=== PATIENT | male | born 1935 | race Caucasian/White ===

== ENCOUNTER 2020-08-20 10:47 | Emergency (ER) | payer MEDICARE ==
[2020-08-20 10:53] VITALS: RESP 18
--- NOTE | 2020-08-20 11:05 | ED ---
Fall HPI - General Chief Complaint: Fall Stated Complaint: fall/rib/back pain Time Seen by Provider: 08/20/20 10:54 Source: patient Mode of arrival: ambulatory - History of Present Illness Initial Comments: patient is an 85-year-old male presenting to the emergency Department with complaints of left-sided rib pain after he fell 3 days ago. Patient states he slipped on some ice and fell backwards landing mostly on his back and he also did hit his head a little bit too. Patient denies loss of consciousness, no dizziness. Patient states he thought the discomfort in his left ribs would go away but it has not. Patient states it's worse when he goes to lay down and when he goes to turn to get back up. Patient denies having a headache, no lightheadedness. He denies being on blood thinners. He denies any blurry vision, no abdominal pain, no nausea or vomiting. He denies any fevers. He denies any chest pain, shortness of breath. Patient does state when he takes in a deep breath it does hurt the left side of his ribs. He denies any other injuries from this fall. He has no further complaints. Upon arrival to the ER, his vital signs are stable. - Related Data Home Medications Medication Instructions Recorded Confirmed Zolpidem [Ambien] 10 mg PO HS PRN 08/20/20 08/20/20 amLODIPine [Norvasc] 5 mg PO DAILY 08/20/20 08/20/20 lisinopriL 20 mg PO BID 08/20/20 08/20/20 Previous Rx's Medication Instructions Recorded Atorvastatin [Lipitor] 80 mg PO HS #30 tab 06/08/14 Sertraline [Zoloft] 25 mg PO DAILY #30 tab 06/08/14 Allergies Allergy/AdvReac Type Severity Reaction Status Date / Time No Known Allergies Allergy Verified 08/20/20 11:32 Review of Systems ROS Statement: Those systems with pertinent positive or pertinent negative responses have been documented in the HPI. ROS Other: All systems not noted in ROS Statement are negative. Past Medical History Past Medical History: Cancer, Hyperlipidemia, Hypertension Additional Past Medical History / Comment(s): prostate History of Any Multi-Drug Resistant Organisms: None Reported Past Surgical History: Coronary Bypass/CABG, Hernia Repair, Prostate Surgery Additional Past Surgical History / Comment(s): ankle surgery Past Anesthesia/Blood Transfusion Reactions: No Reported Reaction Past Psychological History: Anxiety Smoking Status: Never smoker Past Alcohol Use History: Occasional Past Drug Use History: None Reported - Past Family History Daughter(s) Family Medical History: No Reported History General Exam - General Exam Comments Initial Comments: GENERAL: Patient is well-developed and well-nourished. Patient is nontoxic and in no acute distress. HEAD: Atraumatic, normocephalic. there is no hematomas, he does have a small abrasion to the back of his head, this is healing appropriately. No signs of basal skull fracture. EYES: Pupils equal round and reactive to light, extraocular movements intact, sclera anicteric, conjunctiva are normal. Eyelids were unremarkable. ENT: TMs normal, nares patent, oropharynx clear without exudates. Moist mucous membranes. NECK: Normal range of motion, supple without lymphadenopathy or JVD.is no midline tenderness. LUNGS: Unlabored respirations. Breath sounds clear to auscultation bilaterally and equal. No wheezes rales or rhonchi. HEART: Regular rate and rhythm without murmurs, rubs or gallops. ABDOMEN: Soft, nontender, normoactive bowel sounds. No guarding, no rebound. No masses appreciated. : Deferred MUSCULOSKELETAL: Normal extremities with adequate strength and normal range of motion, no pitting or edema. No clubbing or cyanosis. patient does have some pain with palpation of the left lateral and anterior ribs. Positive pain with compression. He does have some mild pain in the thoracic area as well. NEUROLOGICAL: Patient is alert and oriented x 3. Motor and sensory are also intact. Cranial nerves II through XII grossly intact. Symmetrical smile. Normal speech, normal gait. PSYCH: Normal mood, normal affect. SKIN: Warm, Dry, normal turgor, no rashes or lesions noted. Limitations: no limitations Course Vital Signs 08/20/20 10:50 Temperature 98.8 F Pulse Rate 82 Respiratory 18 Rate Blood Pressure 173/85 O2 Sat by Pulse 94 L Oximetry Medical Decision Making - Medical Decision Making patient is an 85-year-old male presenting after he fell 3 days ago, he is complaining of left-sided rib pain. This increases when he lays down onto his back or when he turns to get back up. x-rays of the left ribs, chest x-ray and thoracic back x-ray are all revealed no acute findings of fracture dislocation. I discussed the patient is a most likely contusions. He does take Tylenol Motrin and, Lane at home for more severe pain. I recommended continuing with deep breathing exercises, we did discuss this. Patient is stable for discharge. Patient is in agreement with this plan of care. Return parameters were discussed with the patient and they verbalized understanding. Case discussed with Dr. Jameson. Disposition Clinical Impression: Fall, Contusion of rib on left side Disposition: HOME SELF-CARE Condition: Stable Instructions (If sedation given, give patient instructions): Rib Contusion (ED) Additional Instructions: Please return to the Emergency Department if symptoms worsen or any other concerns. Continue with Tylenol, Motrin, Lane for more severe pain. Follow-up with your physician. Is patient prescribed a controlled substance at d/c from ED?: No Referrals: Jason March MD [Primary Care Provider] - 1-2 days
--- NOTE | 2020-08-20 11:47 | XR ---
EXAMINATION TYPE: XR thoracic spine 2V DATE OF EXAM: 08/20/2020 CLINICAL HISTORY: pain TECHNIQUE: Frontal, lateral, and swimmer's view of thoracic spine are obtained. COMPARISON: None. FINDINGS: Thoracic spine show satisfactory alignment without evidence of acute fracture or dislocatio n. Vertebral body heights are preserved. Moderate multilevel degenerative disc space narrowing. Vi sualized ribs are unremarkable. IMPRESSION: No acute fracture or dislocation is seen in the thoracic spine. ICD 10 NO FRACTURE, INIT IAL EVALUATION
--- NOTE | 2020-08-20 11:48 | XR ---
EXAMINATION TYPE: XR ribs LT w pa chest xray DATE OF EXAM: 08/20/2020 COMPARISON: NONE HISTORY: Pain TECHNIQUE: Single view of the chest 5 views of the ribs are submitted. FINDINGS: Calcified pleural plaques noted. No Evidence for pneumothorax. No evidence for focal contu stacy. Mediastinal structures are midline. Evaluation of the ribs fails to demonstrate evidence for displaced rib fracture or secondary sign of rib fracture. IMPRESSION: Negative study
[2020-08-20 12:03] VITALS: BP 165/72; PULSE 71; TEMP 98.3
== END 2020-08-20 12:02 | disposition home or self-care (01) ==
LOC: EC 10:47
DX: S20.222A Contusion of left back wall of thorax, initial encounter (principal); S00.81XA Abrasion of other part of head, initial encounter; I10 Essential (primary) hypertension; Z79.899 Other long term (current) drug therapy; Z95.1 Presence of aortocoronary bypass graft; Z85.46 Personal history of malignant neoplasm of prostate; W00.0XXA Fall on same level due to ice and snow, initial encounter
CPT/HCPCS: 72070; 99283

== ENCOUNTER 2020-11-29 09:29 | Emergency (ER) | payer MEDICARE ==
[2020-11-29 09:35] VITALS: TEMP 98.2
--- NOTE | 2020-11-29 10:04 | ED ---
General Adult HPI - General Chief complaint: Chest Pain Stated complaint: chest pain Time Seen by Provider: 11/29/20 09:30 Source: patient, RN notes reviewed, old records reviewed Mode of arrival: wheelchair Limitations: no limitations - History of Present Illness Initial comments: This is an 85-year-old male who presents emergency Department complaining of a rash on the right side of his chest. Patient states it started 2 days ago. Patient states he has been having intermittent pain since July on both sides of his ribs and today it it's only on the left side with rashes. Patient states in July he did fall and ever since he has had intermittent pain. Patient denies any anterior chest pain or pressure patient denies any difficulty breat dc shortness of breath. Patient denies any abdominal pain patient denies nausea vomiting diarrhea. Patient denies any recent fever chills or cough. - Related Data Home Medications Medication Instructions Recorded Confirmed Zolpidem [Ambien] 10 mg PO HS PRN 08/20/20 11/29/20 amLODIPine [Norvasc] 5 mg PO DAILY 08/20/20 11/29/20 lisinopriL 20 mg PO BID 08/20/20 11/29/20 Aspirin EC [Ecotrin Low Dose] 162 mg PO DAILY 11/29/20 11/29/20 Previous Rx's Medication Instructions Recorded Atorvastatin [Lipitor] 80 mg PO HS #30 tab 06/08/14 Sertraline [Zoloft] 25 mg PO DAILY #30 tab 06/08/14 valACYclovir HCL 1,000 mg PO TID 7 Days tab 11/29/20 Allergies Allergy/AdvReac Type Severity Reaction Status Date / Time No Known Allergies Allergy Verified 11/29/20 10:38 Review of Systems ROS Statement: Those systems with pertinent positive or pertinent negative responses have been documented in the HPI. ROS Other: All systems not noted in ROS Statement are negative. Past Medical History Past Medical History: Cancer, Hyperlipidemia, Hypertension Additional Past Medical History / Comment(s): prostate History of Any Multi-Drug Resistant Organisms: None Reported Past Surgical History: Coronary Bypass/CABG, Hernia Repair, Prostate Surgery Additional Past Surgical History / Comment(s): ankle surgery Past Anesthesia/Blood Transfusion Reactions: No Reported Reaction Past Psychological History: Anxiety Smoking Status: Never smoker Past Alcohol Use History: Occasional Past Drug Use History: None Reported - Past Family History Daughter(s) Family Medical History: No Reported History General Exam - General Exam Comments Initial Comments: GENERAL: Patient is well-developed and well-nourished. Patient is nontoxic and well- hydrated and is in mild distress. ENT: Neck is soft and supple. No significant lymphadenopathy is noted. Oropharynx is clear. Moist mucous membranes. Neck has full range of motion without eliciting any pain. EYES: The sclera were anicteric and conjunctiva were pink and moist. Extraocular movements were intact and pupils were equal round and reactive to light. Eyelids were unremarkable. PULMONARY: Unlabored respirations. Good breath sounds bilaterally. No audible rales rhonchi or wheezing was noted. CARDIOVASCULAR: There is a regular rate and rhythm without any murmurs gallops or rubs. ABDOMEN: Soft and nontender with normal bowel sounds. SKIN: Patient has groups a fascicular lesions in the distribution of a dermatome probably T3 NEUROLOGIC: Patient is alert and oriented x3. Cranial nerves II through XII are grossly intact. Motor and sensory are also intact. Normal speech, volume and content. Symmetrical smile. MUSCULOSKELETAL: Normal extremities with adequate strength and full range of motion. LYMPHATICS: No significant lymphadenopathy is noted PSYCHIATRIC: Normal psychiatric evaluation. Limitations: no limitations Course Vital Signs 11/29/20 11/29/20 09:29 11:41 Temperature 98.2 F Pulse Rate 80 60 Respiratory 16 18 Rate Blood Pressure 182/86 157/87 O2 Sat by Pulse 97 96 Oximetry Medical Decision Making - Medical Decision Making EKG shows sinus rhythm at 60 bpm WA interval is 256 QRS is 138 QTC intervals 434 QTC is 461. Patient's EKG shows no ST segment elevation or depression. Have a right bundle branch block X-ray of the chest and thoracic spine showed no acute abnormality. On patient pointed to the area of discomfort on the left he pointed right along the area of the rash. The rash is consistent with shingles Disposition Clinical Impression: Shingles Disposition: HOME SELF-CARE Condition: Good Instructions (If sedation given, give patient instructions): Shingles (ED) Prescriptions: valACYclovir HCL 1,000 mg PO TID 7 Days tab Is patient prescribed a controlled substance at d/c from ED?: No Referrals: Jason March MD [Primary Care Provider] - 1-2 days Time of Disposition: 11:34
--- NOTE | 2020-11-29 10:51 | XR ---
EXAMINATION TYPE: XR chest 2V DATE OF EXAM: 11/29/2020 COMPARISON: Chest x-ray August 20, 2020 HISTORY: Difficulty in breathing. TECHNIQUE: Frontal and lateral views of the chest are obtained. FINDINGS: Calcified pleural plaques and chronic parenchymal changes bilaterally. Elevated left hemid iaphragm. There is no suspicious new focal air space opacity, pleural effusion, or pneumothorax seen. The cardiac silhouette size is stable and upper limits of normal. Overlying sternal wires and media stinal clips. The osseous structures are demineralized. IMPRESSION: Chronic changes without new acute pulmonary process.
--- NOTE | 2020-11-29 11:00 | XR ---
Thoracic spine HISTORY: Trauma 3 months prior, pain 3 views of the thoracic spine correlated to prior exam 08/20/2020 Patient is post median sternotomy, there are overlying artifacts. There is a gentle spinal curvature. Bone mineralization is reduced which could limit sensitivity. Thoracic vertebral bodies show preserv ed height and alignment. Degenerative disc changes are noted in the cervical spine. Disc heights are relatively maintained. Probable calcified pleural plaques noted incidentally within the chest. Aorta is dense. IMPRESSION: Osteopenia, spinal curvature, degenerative disc disease. Bone scan or MRI may be of benef it as indicated.
[2020-11-29 11:42] VITALS: BP 157/87; PULSE 60; RESP 18
== END 2020-11-29 11:41 | disposition home or self-care (01) ==
LOC: EC 09:29
DX: B02.9 Zoster without complications (principal); E78.5 Hyperlipidemia, unspecified; I10 Essential (primary) hypertension; M51.34 Other intervertebral disc degeneration, thoracic region; M85.80 Other specified disorders of bone density and structure, unspecified site; Z79.82 Long term (current) use of aspirin; Z95.1 Presence of aortocoronary bypass graft
CPT/HCPCS: 71046; 72072; 93005; 99284

== ENCOUNTER 2020-12-18 16:48 | Inpatient (IN) | payer MEDICARE ==
--- NOTE | 2020-12-18 20:09 | XR ---
EXAMINATION TYPE: XR Hip Complete RT DATE OF EXAM: 12/18/2020 COMPARISON: NONE HISTORY: Hip pain TECHNIQUE: 2 views FINDINGS: Acetabulum is intact. There is slight irregular appearance of the cortical surface of the g reater trochanter that is suspicious for fracture. There is no dislocation. IMPRESSION: Possible nondisplaced intertrochanteric fracture of the right femur.
--- NOTE | 2020-12-18 20:11 | XR ---
EXAMINATION TYPE: XR wrist complete RT DATE OF EXAM: 12/18/2020 COMPARISON: NONE HISTORY: Wrist pain TECHNIQUE: 4 views FINDINGS: There is mild deformity of the distal radius suggestive of an old fracture. I see no defini te acute fracture. The carpal bones are intact. There is mild narrowing of the radiocarpal joint spac e. IMPRESSION: Old distal radius fracture. 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
[2020-12-18] MEDS ORDERED: MORPHINE SULFATE 4 MG/ML SYRINGE IVP STA (20:59)
[2020-12-18] MEDS ORDERED: NALOXONE 0.4 MG/ML 1 ML VIAL IV PRN (21:03)
--- NOTE | 2020-12-18 21:03 | ED ---
Fall HPI - General Chief Complaint: Fall Stated Complaint: fall, hip pain Time Seen by Provider: 12/18/20 17:48 Source: patient Mode of arrival: wheelchair - History of Present Illness Initial Comments: Fidel a very pleasant 85-year-old male who presents to the emergency department today via private vehicle for evaluation of right wrist and right hip pain after a fall at home. Patient reports he was up approximately 2 steps on a step ladder when he lost his footing and fell onto his right side. Patient landed on his hip and attempted to brace the fall with his wrist. H did not strike his head he did not lose consciousness. He is on no anticoagulants he takes baby aspirin daily. - Related Data Home Medications Medication Instructions Recorded Confirmed amLODIPine [Norvasc] 5 mg PO DAILY 08/20/20 12/18/20 lisinopriL 20 mg PO BID 08/20/20 12/18/20 Gabapentin [Neurontin] 100 mg PO TID PRN 12/18/20 12/18/20 HYDROcodone/APAP 5-325MG [Ray 1 tab PO Q4HR PRN 12/18/20 12/18/20 5-325] Triamcinolone 0.1% Cream [Kenalog 1 applicatio TOPICAL BID 12/18/20 12/18/20 0.1% Cream] Previous Rx's Medication Instructions Recorded Atorvastatin [Lipitor] 80 mg PO HS #30 tab 06/08/14 Sertraline [Zoloft] 25 mg PO DAILY #30 tab 06/08/14 valACYclovir HCL 1,000 mg PO TID 7 Days tab 11/29/20 Allergies Allergy/AdvReac Type Severity Reaction Status Date / Time No Known Allergies Allergy Verified 12/18/20 20:23 Review of Systems ROS Statement: Those systems with pertinent positive or pertinent negative responses have been documented in the HPI. ROS Other: All systems not noted in ROS Statement are negative. Past Medical History Past Medical History: Cancer, Hyperlipidemia, Hypertension Additional Past Medical History / Comment(s): prostate, shingles History of Any Multi-Drug Resistant Organisms: None Reported Past Surgical History: Coronary Bypass/CABG, Hernia Repair, Prostate Surgery Additional Past Surgical History / Comment(s): ankle surgery Past Anesthesia/Blood Transfusion Reactions: No Reported Reaction Past Psychological History: Anxiety Smoking Status: Never smoker Past Alcohol Use History: Occasional Past Drug Use History: None Reported - Past Family History Daughter(s) Family Medical History: No Reported History General Exam - General Exam Comments Initial Comments: Physical Exam GENERAL: Patient is well-developed and well-nourished. Patient is nontoxic and well-hydrated and is in no distress. HENT: Normocephalic, Atraumatic. EYES: Subconjunctival hemorrhage noted in the left eye due to injections for macular degeneration earlier this week PULMONARY: Unlabored respirations. CARDIOVASCULAR: RRR Warm and well perfused extremities ABDOMEN: Non-distended SKIN: No rashes or bruising : Deferred NEUROLOGIC: Alert and oriented Normal speech MUSCULOSKELETAL: Pain with range of motion of the right hip, no shortening or rotation PSYCHIATRIC: No SI/HI Limitations: no limitations Course Vital Signs 12/18/20 17:39 Temperature 98.2 F Pulse Rate 67 Respiratory 20 Rate Blood Pressure 126/69 O2 Sat by Pulse 96 Oximetry Medical Decision Making - Medical Decision Making Patient was seen and evaluated x-rays are obtained they confirm a intertrochanteric hip fracture, patient's family request consult to Dr. Asim Donnelly, fracture was discussed he recommends admission to medicine with cardiology consult for operative clearance Disposition Clinical Impression: Intertrochanteric fracture of right hip, Fall Disposition: ADMITTED IP TO THIS [facility] Condition: Stable Referrals: Jason March MD [Primary Care Provider] - 1-2 days
[2020-12-18 21:32] LABS: Basophils % (A) 0 %; Eosinophils % (A) 1 %; HCT 34.8 % (39.0-53.0); HGB 11.2 gm/dL (13.0-17.5); Lymphocytes # (A) 1.1 k/uL (1.0-4.8); Lymphocytes % (A) 15 %; MCH 28.3 pg (25.0-35.0); MCHC 32.3 g/dL (31.0-37.0); MCV 87.7 fL (80.0-100.0); Mean Platelet Volume 9.4; Monocytes # (A) 0.4 k/uL (0-1.0); Monocytes % (A) 6 %; Neutrophils # (A) 5.3 k/uL (1.3-7.7); Neutrophils % (A) 77 %; Platelet Count 178 k/uL (150-450); RBC 3.97 m/uL (4.30-5.90); RDW 15.1 % (11.5-15.5); WBC 6.9 k/uL (3.8-10.6)
[2020-12-18 21:42] LABS: ALT 18 U/L (4-49); AST 43 U/L (17-59); African American GFR (CKD) >90 (>60 ml/min/1.73 sqM); Albumin 4.1 g/dL (3.5-5.0); Alkaline Phosphatase 83 U/L (38-126); Anion Gap 5 mmol/L; Blood Urea Nitrogen 22 mg/dL (9-20); Calcium 9.3 mg/dL (8.4-10.2); Carbon Dioxide 25 mmol/L (22-30); Chloride 105 mmol/L (98-107); Glucose 110 mg/dL (74-99); Non-African American GFR(CKD) 79 (>60 ml/min/1.73 sqM); Sodium 135 mmol/L (137-145); Total Bilirubin 1.3 mg/dL (0.2-1.3); Total Protein 6.6 g/dL (6.3-8.2)
[2020-12-18 21:45] LABS: Partial Thromboplastin Time 24.4 sec (22.0-30.0); Prothrombin Time 10.4 sec (9.0-12.0)
[2020-12-19] MEDS ORDERED: GABAPENTIN 100 MG CAP PO PRN (03:07)
[2020-12-19] MEDS: MORPHINE SULFATE 4 MG/ML SYRINGE IVP PRN ×5 (03:23→21:30)
[2020-12-19] MEDS: SODIUM CHLORIDE 0.9% 1,000 ML IV SCH ×3 (03:24→23:09)
[2020-12-19] MEDS: lisinopriL 20 MG TAB PO SCH ×2 (08:00→20:00)
[2020-12-19] MEDS: amLODIPine 5 MG TAB PO SCH (08:00)
[2020-12-19] MEDS: SERTRALINE 25 MG TAB PO SCH (08:00)
[2020-12-19 08:25] LABS: African American GFR (CKD) 88 (>60 ml/min/1.73 sqM); Anion Gap 5 mmol/L; Blood Urea Nitrogen 19 mg/dL (9-20); Carbon Dioxide 25 mmol/L (22-30); Chloride 107 mmol/L (98-107); Glucose 112 mg/dL (74-99); Non-African American GFR(CKD) 76 (>60 ml/min/1.73 sqM); Sodium 137 mmol/L (137-145)
--- NOTE | 2020-12-19 08:47 | P.CRDCN ---
History of Present Illness Consult date: 12/19/20 Requesting physician: Dre Santana Reason for Consult (text): cardiac clearance Chief complaint: hip pain s/p fall History of present illness: This is a pleasant 85-year-old gentleman who follows with Dr. Samuel in the office. He has a history of CAD status post CABG in 2013 with BRYSON to the LAD, SVG to diagonal, SVG to obtuse marginal, SVG to PDA, RCA bridge to PDA, history of hypertension and hyperlipidemia. He is a nonsmoker. Presented to the emergency department following a fall. He was 2 steps onto a ladder trying to do some layering when he fell and landed on his right side. X-ray of the right hip showed possible nondisplaced intertrochanteric fracture of the right femur. We have been asked to see the patient in consultation for cardiac clearance. EKG on admission showed sinus rhythm with first-degree AV block, right bundle branch block and evidence of prior inferior MO and no change compared to EKG from last month. Labs on admission showed hemoglobin of 11.2, potassium of 6.0 with slight hemolysis and a repeat potassium of 4.0, BUN 22, creatinine 0.87. His vital signs have been stable. All medications currently include lisinopril 20 mg by mouth twice a day, atorvastatin 80 mg by mouth daily at bedtime, L acyclovir for recent shingles infection, amlodipine 5 mg by mouth daily and low- dose aspirin 81 mg daily. Overall he feels he is fairly active for his age. He continues to ride a motorcycle. He's had no recent complaints of chest discomfort other than his shingles, no shortness of breath, no palpitations, no dizziness, no lightheadedness, no orthopnea, no PND. He does have mild bilateral lower extremity edema that is chronic and stable. He is fairly certain that he has had his echocardiogram and stress test done within the last 6 months and is followed up with Dr. Samuel at which time there were no concerns regarding the testing. Most recent echocardiogram available to me is from prior to his CABG in 2013 which showed mildly impaired LV systolic function with an ejection fraction between 45-50%, mild MR, trace TR. Past Medical History Past Medical History: Cancer, Hyperlipidemia, Hypertension Additional Past Medical History / Comment(s): prostate CA, shingles History of Any Multi-Drug Resistant Organisms: None Reported Past Surgical History: Coronary Bypass/CABG, Hernia Repair, Prostate Surgery Additional Past Surgical History / Comment(s): ankle surgery Past Anesthesia/Blood Transfusion Reactions: No Reported Reaction Past Psychological History: Anxiety Smoking Status: Never smoker Past Alcohol Use History: Occasional Past Drug Use History: None Reported - Past Family History Daughter(s) Family Medical History: No Reported History Medications and Allergies Home Medications Medication Instructions Recorded Confirmed Type Atorvastatin [Lipitor] 80 mg PO HS #30 tab 06/08/14 12/18/20 Rx Sertraline [Zoloft] 25 mg PO DAILY #30 tab 06/08/14 12/18/20 Rx amLODIPine [Norvasc] 5 mg PO DAILY 08/20/20 12/18/20 History lisinopriL 20 mg PO BID 08/20/20 12/18/20 History valACYclovir HCL 1,000 mg PO TID 7 Days tab 11/29/20 12/18/20 Rx Gabapentin [Neurontin] 100 mg PO TID PRN 12/18/20 12/18/20 History HYDROcodone/APAP 5-325MG [[place] 1 tab PO Q4HR PRN 12/18/20 12/18/20 History 5-325] Triamcinolone 0.1% Cream [Kenalog 1 applicatio TOPICAL BID 12/18/20 12/18/20 History 0.1% Cream] Allergies Allergy/AdvReac Type Severity Reaction Status Date / Time No Known Allergies Allergy Verified 12/18/20 20:23 Physical Exam Vitals: Vital Signs Temp Pulse Pulse Resp BP BP Pulse Ox 12/19/20 04:55 98.3 F 78 18 137/74 93 L 12/19/20 03:00 78 18 12/19/20 02:45 98.5 F 66 18 157/73 97 12/19/20 01:05 79 16 121/73 92 L 12/18/20 17:39 98.2 F 67 20 126/69 96 Intake and Output 12/18/20 12/19/20 12/19/20 22:59 06:59 14:59 Intake Total 300 Balance 300 Intake: Intake, IV Titration 300 Amount Sodium Chloride 0.9% 1, 300 000 ml @ 100 mls/hr IV . Q10H [facility] Rx#:[id number] Other: Voiding Method Urinal # Voids 1 Weight 79.379 kg 79.379 kg PHYSICAL EXAMINATION: This is a 85-year-old male in no apparent distress at the time of my examination. VITAL SIGNS: Blood pressure 137/74, heart rate 78, respirations 18, temp 98.3F. Patient is 93 % on room air. HEENT: Head is atraumatic, normocephalic. Pupils are equal, round. Sclerae anicteric. Conjunctivae are clear. Mucous membranes of the mouth are moist. Neck is supple. There is no elevated jugular venous pressure. No carotid bruit is heard. CHEST EXAMINATION: Clear to auscultation bilaterally. No wheezes rales or rhonchi. Respirations even and nonlabored. HEART EXAMINATION: Heart regular, positive S1 and S2. No S3. No S4. Soft systolic murmur. ABDOMEN: Soft, nontender. Bowel sounds are heard. No organomegaly noted. EXTREMITIES: 2+ peripheral pulses with evidence of mild peripheral edema and no calf tenderness noted. NEUROLOGIC EXAMINATION: Patient is awake, alert and oriented x3. Results 12/18/20 21:21 12/19/20 07:55 Cardiac Enzymes 12/18/20 Range/Units 21: AST 43 (17-59) U/L Coagulation 12/18/20 Range/Units 21:21 PT 10.4 (9.0-12.0) sec APTT 24.4 (22.0-30.0) sec CBC 12/18/20 Range/Units 21:21 WBC 6.9 (3.8-10.6) k/uL RBC 3.97 L (4.30-5.90) m/uL Hgb 11.2 L (13.0-17.5) gm/dL Hct 34.8 L (39.0-53.0) % Plt Count 178 (150-450) k/uL Comprehensive Metabolic Panel 12/18/20 12/19/20 Range/Units 21:21 07:55 Sodium 135 L 137 (137-145) mmol/L Potassium 6.0 H 4.0 (3.5-5.1) mmol/L Chloride 105 107 (98-107) mmol/L Carbon Dioxide 25 25 (22-30) mmol/L BUN 22 H 19 (9-20) mg/dL Creatinine 0.87 0.92 (0.66-1.25) mg/dL Glucose 110 H 112 H (74-99) mg/dL Calcium 9.3 9.0 (8.4-10.2) mg/dL AST 43 (17-59) U/L ALT 18 (4-49) U/L Alkaline Phosphatase 83 (38-126) U/L Total Protein 6.6 (6.3-8.2) g/dL Albumin 4.1 (3.5-5.0) g/dL Current Medications Generic Name Dose Route Start Last Admin Trade Name Freq PRN Reason Stop Dose Admin Amlodipine Besylate 5 mg 12/19/20 09:00 12/19/20 08:00 Amlodipine 5 Mg Tab PO 5 mg DAILY [facility] Administration Atorvastatin Calcium 80 mg 12/19/20 21:00 Atorvastatin 80 Mg Tab PO HS [facility] Gabapentin 100 mg 12/19/20 03:07 Gabapentin 100 Mg Cap PO TID PRN Pain Sodium Chloride 1,000 mls @ 100 mls/hr 12/19/20 03:15 12/19/20 03:24 Saline 0.9% IV 100 mls/hr .Q10H [facility] Administration Lisinopril 20 mg 12/19/20 09:00 12/19/20 08:00 Lisinopril 20 Mg Tab PO 20 mg BID [facility] Administration Morphine Sulfate 4 mg 12/19/20 03:03 12/19/20 08:00 Morphine Sulfate 4 Mg/Ml Syringe IVP 4 mg Q4HR PRN Administration Pain Naloxone HCl 0.2 mg 12/18/20 21:03 Naloxone 0.4 Mg/Ml 1 Ml Vial IV Q2M PRN Opioid Reversal Sertraline HCl 25 mg 12/19/20 09:00 12/19/20 08:00 Sertraline 25 Mg Tab PO 25 mg DAILY [facility] Administration Intake and Output 12/18/20 12/19/20 12/19/20 22:59 06:59 14:59 Intake Total 300 Balance 300 Intake: Intake, IV Titration 300 Amount Sodium Chloride 0.9% 1, 300 000 ml @ 100 mls/hr IV . Q10H [facility] Rx#:[id number] Other: Voiding Method Urinal # Voids 1 Weight 79.379 kg 79.379 kg 12/18/20 21:21 12/19/20 07:55 Assessment and Plan Assessment: #1 possible nondisplaced intertrochanteric fracture of the right femur #2 CAD status post CABG 2013 #3 hypertension #4 hyperlipidemia Plan: From cardiology perspective there is no absolute contraindication for patient undergo surgery. We would recommend cardiac monitoring and continue cardiac med ications perioperatively including aspirin. We will follow the patient and provide further recommendations accordingly. INKER MACHINE note has been reviewed, I agree with a documented findings and plan of care. Patient was seen and examined.
[2020-12-19] MEDS ORDERED: IV FLUID CONTINUATION 1,000 ML IV ONE ×2 (08:57)
--- NOTE | 2020-12-19 09:09 | P.HPOR ---
History of Present Illness H&P Date: 12/19/20 Chief Complaint: Right wrist and right hip pain The patient is an 85-year-old gentleman who fell yesterday at home and presents with right hip pain after a fall. He notes he was doing some work at home. He denied loss of consciousness. He is unable to really bear weight on the right leg after the fall. Normally he walks without any assistive devices. He also complains of right wrist pain. He notes he had a previous fracture that healed Review of Systems Musculoskeletal: Reports as per HPI Past Medical History Past Medical History: Cancer, Hyperlipidemia, Hypertension Additional Past Medical History / Comment(s): prostate CA, shingles History of Any Multi-Drug Resistant Organisms: None Reported Past Surgical History: Coronary Bypass/CABG, Hernia Repair, Prostate Surgery Additional Past Surgical History / Comment(s): ankle surgery Past Anesthesia/Blood Transfusion Reactions: No Reported Reaction Past Psychological History: Anxiety Smoking Status: Never smoker Past Alcohol Use History: Occasional Past Drug Use History: None Reported - Past Family History Daughter(s) Family Medical History: No Reported History Medications and Allergies Home Medications Medication Instructions Recorded Confirmed Type Atorvastatin [Lipitor] 80 mg PO HS #30 tab 06/08/14 12/18/20 Rx Sertraline [Zoloft] 25 mg PO DAILY #30 tab 06/08/14 12/18/20 Rx amLODIPine [Norvasc] 5 mg PO DAILY 08/20/20 12/18/20 History lisinopriL 20 mg PO BID 08/20/20 12/18/20 History valACYclovir HCL 1,000 mg PO TID 7 Days tab 11/29/20 12/18/20 Rx Gabapentin [Neurontin] 100 mg PO TID PRN 12/18/20 12/18/20 History HYDROcodone/APAP 5-325MG [[place] 1 tab PO Q4HR PRN 12/18/20 12/18/20 History 5-325] Triamcinolone 0.1% Cream [Kenalog 1 applicatio TOPICAL BID 12/18/20 12/18/20 History 0.1% Cream] Allergies Allergy/AdvReac Type Severity Reaction Status Date / Time No Known Allergies Allergy Verified 12/18/20 20:23 Physical Examination - Hip right Gait: other (Nonweightbearing) Tenderness with palpation: anterior Pain with motion: other (Pain with any attempted range of motion of the right hip) ROM: extension: 0 degrees ROM: flexion: 30 degrees ROM: abduction: 20 degrees ROM: adduction: 10 degrees ROM: internal rotation: 0 degrees ROM: external rotation: 40 degrees Results Nontender over the cervical, thoracic, and lumbar spine. Tender over the right distal radius with mild dorsal wrist swelling. Nontender right elbow and shoulder. Pelvis stable to external rotation stress. Slight external rotation and shortening of the right lower extremity. Pain with log roll right hip. No pain with log roll left hip. Nontender bilateral knees, ankles, and feet. Distal neurovascular exam intact in the lower extremity. Homans negative bilaterally. - Labs Labs: Abnormal Lab Results - Last 24 Hours (Table) 12/18/20 12/18/20 12/19/20 Range/Units 21:21 21: 07:55 RBC 3.97 L (4.30-5.90) m/uL Hgb 11.2 L (13.0-17.5) gm/dL Hct 34.8 L (39.0-53.0) % Sodium 135 L (137-145) mmol/L Potassium 6.0 H (3.5-5.1) mmol/L BUN 22 H (9-20) mg/dL Glucose 110 H 112 H (74-99) mg/dL H & H 12/18/20 Range/Units 21:21 Hgb 11.2 L (13.0-17.5) gm/dL Hct 34.8 L (39.0-53.0) % Coagulation 12/18/20 Range/Units 21:21 INR 1.0 (<1.2) Result Diagrams: 12/18/20 21:21 12/19/20 07:55 - Diagnostic results Wrist/Hand x-ray: image reviewed (Previous right distal radius fracture with some deformity, no definite acute displaced fracture.) Hip x-ray: image reviewed (Minimally displaced right intertrochanteric femur fracture) Assessment and Plan Assessment: Right intertrochanteric femur fracture Right wrist contusion versus occult refracture of the distal radius History of CABG Plan: I talked with the patient regarding his condition along with treatment options. Regarding his hip I recommend proceeding with surgical intervention. We will plan to proceed with trochanteric intramedullary nailing of his right intertrochanteric femur fracture. Regarding his right wrist, we will likely place him in a Velcro brace. Time with Patient: Greater than 30
[2020-12-19] MEDS ORDERED: ePHEDrine SULFATE/0.9% NACL/PF 50 MG/5 ML SYRINGE IV ONE (09:26)
[2020-12-19] MEDS ORDERED: MIDAZOLAM 2 MG/2 ML VIAL ONE (09:26)
[2020-12-19] MEDS ORDERED: KETAMINE 10 MG/ML 20 ML VIAL ONE (09:26)
[2020-12-19] MEDS ORDERED: SODIUM CHLORIDE 0.9% 50 ML with ceFAZolin 2,000 MG IV ONE ×2 (09:48)
--- NOTE | 2020-12-19 10:42 | P.OP ---
Date of Procedure: 12/19/20 Preoperative Diagnosis: Mildly displaced right intertrochanteric femur fracture Postoperative Diagnosis: Same Procedure(s) Performed: Trochanteric intramedullary nailing right intertrochanteric femur fracture Implants: [place] 130 degree, short gamma nail, 100 mm compression screw Anesthesia: spinal Surgeon: Asim March Estimated Blood Loss (ml): 20 Pathology: none sent Condition: stable Disposition: PACU Indications for Procedure: The patient's [place] 5-year-old male who is a community ambulator presents after falling at home yesterday injuring his right hip. He is noted to have a mildly displaced right intertrochanteric femur fracture. A discussion of the risks and benefits of operative intervention was made with the patient. He opted to proceed with surgery. Operative risks to include infection, neurovascular injury, development of blood clots, possible development of nonunion/malunion, and possible need for subsequent procedures was discussed. Informed consent was obtained. Operative Findings: As below Description of Procedure: The patient was brought to the operating room, and after induction of spinal anesthesia was placed supine on the Mikayla table. The fracture was reduced with longitudinal traction and internal rotation of the right lower extremity. This is verified on the AP and lateral views with fluoroscopy. The right lower extremity was prepped and draped in normal fashion. A 6 cm incision was then made just proximal to the greater trochanter. Skin was incised sharply. Subcutaneous tissues were divided sharply. Electrocautery was used for hemostasis. The gluteus tom fascia was split in line with the skin incision. Blunt dissection was then made down to the tip of the greater trochanter. A starting awl was used and the medial tip of the greater trochanter. This is verified with fluoroscopy. A ball-tipped guidewire was inserted down the canal. The distal canal was reamed up to 13 mm. The proximal segment was reamed with the 15.5 mm opening reamer to the level of the lesser trochanter. A 130 degrees short gamma nail was then inserted over the guidewire. The guidewire was then removed. This was taken to the appropriate depth. A threaded guidepin was then placed into the centercentral portion of the femoral head and neck on the AP and lateral views with the aid of fluoroscopy to within 5 mm of the articular surface. A triple reamer was used to depth of 100 mm. The compression screw was inserted again to within 5 mm the articular surface. The distal dynamic screw was inserted with the appropriate guide. Final fluoroscopic view showed adequate reduction of the fracture and placement of the implant. The wound was irrigated normal saline. The fascia was closed with running #1 Vicryl suture. The subcutaneous tissues reapproximated interrupted 2-0 Vicryl sutures. The skin was reapproximated with silvestre. A sterile dressing was applied. The patient was then awoken from sedation and transferred to the recovery room in good condition. Blood loss was estimated at 20 mL. No complications were incurred. Sponge and needle counts were correct at the end of the case.
[2020-12-19] MEDS ORDERED: ONDANSETRON 4 MG/2 ML VIAL IVP ONE (10:46)
[2020-12-19] MEDS ORDERED: LACTATED RINGERS 1,000 ML IV ONE (10:51)
--- NOTE | 2020-12-19 11:08 | XR ---
EXAMINATION TYPE: XR Hip Complete RT DATE OF EXAM: 12/19/2020 COMPARISON: NONE HISTORY: Right hip fracture TECHNIQUE: 4 intraoperative views submitted FINDINGS: Postsurgical change appears in near-anatomic alignment. Resolution limited. Surgical clips in the pelvis noted. IMPRESSION: Postop
[2020-12-19] MEDS: ENOXAPARIN 40 MG/0.4 ML SYRINGE SQ SCH (14:54)
--- NOTE | 2020-12-19 15:20 | P.CONS ---
History of Present Illness - Reason for Consult Consult date: 12/19/20 Medical management Requesting physician: Asim March - Chief Complaint Right femur fracture - History of Present Illness Consultation: This is a pleasant 85-year-old patient who follows with Dr. Jason Donnelly. Rn Obgyn Dr. Avalos. Chronic stable medical conditions include hyperlipidemia, hypertension, coronary artery disease with bypass. He was working on a ladder, lost his balance falling on his right hip. X-rays in the ER did confirm a right femur fracture. Patient's current good exercise tolerance. No chest pain no shortness of breath. Able to do a flight of stairs and walk at least 2 blocks. Has no active cardiac symptoms. Earlier in the day had cleared the patient for surgery from medical standpoint. Patient underwent nailing of the right femur. Postprocedure pain is controlled. No chest pain or shortness of breath. at the bedside. She did have a stress test within the year that was reportedly unremarkable per the patient Review of systems: GEN.: None EYES: None HEENT: None NECK: None RESPIRATORY: None CARDIOVASCULAR: None GASTROINTESTINAL: None GENITOURINARY: Urinary frequency MUSCULOSKELETAL: Joint pains LYMPHATICS: None HEMATOLOGICAL: None PSYCHIATRY: None NEUROLOGICAL: None Past medical history to include: Hypertension, hyperlipidemia, shingles, coronary artery disease with bypass, prostate cancer treated with prostatectomy Social history: . Alcohol occasionally. No smoking. Retired Family history: Reviewed, noncontributory to presentation Physical examination: VITAL SIGNS: 98.6, 72, 16, 117/59, 96% on 2 L GENERAL: BMI 25.8, laying in bed, awake comfortable. EYES: Pupils equal. Conjunctiva normal. HEENT: External appearance of nose and ears normal, oral cavity grossly normal. NECK: JVD not raised; masses not palpable. HEART: First and second heart sounds are normal; no edema. LUNGS: Respiratory rate normal; clear to auscultation. MUSCULAR skeletal: Evidence of OA ABDOMEN: Soft, nontender, liver spleen not palpable, no masses palpable. PSYCH: Alert and oriented x3; mood and affect normal. NEUROLOGICAL: Cranial nerves grossly intact; no facial asymmetry, power and sensation grossly intact. LYMPHATICS: No lymph nodes palpable in the axilla and neck INVESTIGATIONS, reviewed in the clinical context: WBC 6.9 hemoglobin 11.2 platelets 178 potassium 6 repeat 4.0 creatinine 0.8 Coronavirus [PCR]: Not detected EKG tracing: Sinus rhythm with first-degree AV block, right bundle branch block evidence of inferior RI Assessment and plan: -Right femur fracture, secondary to fall followed by ID nailing -Coronary artery disease with prior history of carotid bypass, stable Patient on Norvasc, Lipitor, CUCA inhibitor -Essential hypertension On Norvasc and lisinopril -Anxiety depression otherwise specified Continue with Zoloft -Hyperlipidemia Continue with Lipitor -Primary osteoarthritis, bilateral multiple joints When necessary pain medications -DVT prophylaxis Add subcu Lovenox Care was discussed with the patient and at the bedside. Questions answered. Add aspirin 81 mg daily. Telemetry. Activity per orthopedics. Thank you Dr. March Past Medical History Past Medical History: Cancer, Hyperlipidemia, Hypertension Additional Past Medical History / Comment(s): prostate CA, shingles History of Any Multi-Drug Resistant Organisms: None Reported Past Surgical History: Coronary Bypass/CABG, Hernia Repair, Prostate Surgery Additional Past Surgical History / Comment(s): ankle surgery Past Anesthesia/Blood Transfusion Reactions: No Reported Reaction Past Psychological History: Anxiety Smoking Status: Never smoker Past Alcohol Use History: Occasional Past Drug Use History: None Reported - Past Family History Daughter(s) Family Medical History: No Reported History Medications and Allergies Home Medications Medication Instructions Recorded Confirmed Type Atorvastatin [Lipitor] 80 mg PO HS #30 tab 06/08/14 12/18/20 Rx Sertraline [Zoloft] 25 mg PO DAILY #30 tab 06/08/14 12/18/20 Rx amLODIPine [Norvasc] 5 mg PO DAILY 08/20/20 12/18/20 History lisinopriL 20 mg PO BID 08/20/20 12/18/20 History valACYclovir HCL 1,000 mg PO TID 7 Days tab 11/29/20 12/18/20 Rx Gabapentin [Neurontin] 100 mg PO TID PRN 12/18/20 12/18/20 History HYDROcodone/APAP 5-325MG [[place] 1 tab PO Q4HR PRN 12/18/20 12/18/20 History 5-325] Triamcinolone 0.1% Cream [Kenalog 1 applicatio TOPICAL BID 12/18/20 12/18/20 History 0.1% Cream] Allergies Allergy/AdvReac Type Severity Reaction Status Date / Time No Known Allergies Allergy Verified 12/18/20 20:23 Physical Exam Vitals: Vital Signs Temp Pulse Pulse Resp BP BP BP 12/19/20 11:00 74 16 122/58 12/19/20 10:45 72 16 117/59 12/19/20 10:38 98.6 F 71 18 102/55 12/19/20 04:55 98.3 F 78 18 137/74 12/19/20 03:00 78 18 12/19/20 02:45 98.5 F 66 18 157/73 12/19/20 01:05 79 16 121/73 12/18/20 17:39 98.2 F 67 20 126/69 Pulse Ox 12/19/20 11:00 97 12/19/20 10:45 96 12/19/20 10:38 98 12/19/20 04:55 93 L 12/19/20 03:00 12/19/20 02:45 97 12/19/20 01:05 92 L 12/18/20 17:39 96 Intake and Output 12/19/20 12/19/20 12/19/20 06:59 14:59 22:59 Intake Total 300 450 Output Total 20 Balance 300 430 Intake: IV 450 Intake, IV Titration 300 Amount Sodium Chloride 0.9% 1, 300 000 ml @ 100 mls/hr IV . Q10H [facility] Rx#:[id number] Output: Estimated Blood Loss 20 Other: Voiding Method Urinal # Voids 1 Weight 79.379 kg Results CBC & Chem 7: 12/18/20 21:21 12/19/20 07:55 Labs: Abnormal Lab Results - Last 24 Hours (Table) 12/18/20 12/18/20 12/19/20 Range/Units 21:21 21:21 07:55 RBC 3.97 L (4.30-5.90) m/uL Hgb 11.2 L (13.0-17.5) gm/dL Hct 34.8 L (39.0-53.0) % Sodium 135 L (137-145) mmol/L Potassium 6.0 H (3.5-5.1) mmol/L BUN 22 H (9-20) mg/dL Glucose 110 H 112 H (74-99) mg/dL
[2020-12-19] MEDS: valACYclovir HCL 1,000 MG TABLET PO SCH ×2 (15:48→20:00)
[2020-12-19] MEDS: ATORVASTATIN 80 MG TAB PO SCH ×2 (19:58→20:00)
[2020-12-19] MEDS: ACETAMINOPHEN TAB 500 MG TAB PO PRN (19:58)
[2020-12-19] MEDS: TRIAMCINOLONE 0.1% CREAM 80 GM TUBE TOPICAL SCH (20:00)
[2020-12-20 01:44] LABS: Appearance,Urine Clear (Clear); Bilirubin,Urine Negative (Negative); Blood,Urine Negative (Negative); Color,Urine Yellow; Glucose,Urine (UA) Negative (Negative); Ketones,Urine Trace (Negative); Leukocyte Esterase,Urine Negative (Negative); Nitrite,Urine Negative (Negative); PH, Urine 5.5 (5.0-8.0); Protein,Urine Negative (Negative); Specific Gravity,Urine 1.024 (1.001-1.035); Urobilinogen,Urine <2.0 mg/dL (<2.0)
[2020-12-20] MEDS: MORPHINE SULFATE 4 MG/ML SYRINGE IVP PRN ×2 (04:53→09:19)
[2020-12-20] MEDS: ACETAMINOPHEN TAB 500 MG TAB PO PRN (05:02)
--- NOTE | 2020-12-20 07:38 | FL ---
EXAMINATION TYPE: FL guidance operating room DATE OF EXAM: 12/19/2020 FLUOROSCOPY Fluoroscopy time of 68 seconds was used during right hip fracture fixation. 4 image/s document/s the procedure.
[2020-12-20] MEDS: amLODIPine 5 MG TAB PO SCH (09:15)
[2020-12-20] MEDS: lisinopriL 20 MG TAB PO SCH ×2 (09:15→20:50)
[2020-12-20] MEDS: TRIAMCINOLONE 0.1% CREAM 80 GM TUBE TOPICAL SCH ×2 (09:16→20:50)
[2020-12-20] MEDS: valACYclovir HCL 1,000 MG TABLET PO SCH ×3 (09:16→20:50)
[2020-12-20] MEDS: SERTRALINE 25 MG TAB PO SCH (09:16)
[2020-12-20] MEDS: ENOXAPARIN 40 MG/0.4 ML SYRINGE SQ SCH (09:16)
[2020-12-20 11:33] LABS: Basophils % (A) 0 %; Eosinophils # (A) 0.1 k/uL (0-0.7); Eosinophils % (A) 1 %; HCT 29.6 % (39.0-53.0); Lymphocytes % (A) 17 %; MCH 30.1 pg (25.0-35.0); MCHC 33.8 g/dL (31.0-37.0); MCV 89.1 fL (80.0-100.0); Mean Platelet Volume 7.9; Monocytes # (A) 0.5 k/uL (0-1.0); Monocytes % (A) 9 %; Neutrophils # (A) 4.2 k/uL (1.3-7.7); Neutrophils % (A) 72 %; Platelet Count 139 k/uL (150-450); RBC 3.32 m/uL (4.30-5.90); RDW 14.8 % (11.5-15.5); WBC 5.8 k/uL (3.8-10.6)
--- NOTE | 2020-12-20 12:48 | P.PN ---
Subjective This is a pleasant 85-year-old male past medical history significant for coronary artery disease status post bypass grafting in 2013, hypertension and dyslipidemia. He follows in the office with Dr. Samuel. He is status post right IM nailing of the right intertrochanteric reamer yesterday with Dr. March. He is seen and examined sitting up in bed with family at the bedside. He denies symptoms of chest pain, shortness of breath, dizziness or palpitations. His neck and up with physical therapy as of yet. Blood pressure 112/89 heart rate 85. Currently maintained on amlodipine 5 mg daily, atorvastatin 80 mg daily and lisinopril 20 mg twice a day. GENERAL: Well-appearing, well-nourished and in no acute distress. NECK: Supple without JVD or thyromegaly. LUNGS: Breath sounds clear to auscultation bilaterally. Respiration equal and unlabored. No wheezes, rales or rhonchi. HEART: Regular rate and rhythm with systolic ejection murmur, no rubs or gallops. S1 and S2 heard. EXTREMITIES: Normal range of motion, no edema. No clubbing or cyanosis. Peripheral pulses intact. ASSESSMENT Nondisplaced intertrochanteric fracture of the right femur status post surgical repair, postoperative day #1 Coronary artery disease status post bypass grafting Hypertension Dyslipidemia PLAN Stable from a cardiac perspective. We will follow along as needed, please follow up with Dr. Samuel upon discharge. Nurse Practitioner note has been reviewed, I agree with a documented findings and plan of care. Patient was seen and examined. Objective - Vital Signs Vital signs: Vital Signs Temp 98.9 F 12/20/20 11:15 Pulse 85 12/20/20 11:15 Resp 20 12/20/20 11:15 BP 112/69 12/20/20 11:15 Pulse Ox 92 L 12/20/20 11:20 Intake & Output 12/19/20 12/20/20 12/20/20 18:59 06:59 18:59 Intake Total 850 1300 Output Total 20 500 Balance 830 800 Intake: IV 450 Intake, IV Titration 400 1000 Amount Sodium Chloride 0.9% 1, 400 1000 000 ml @ 100 mls/hr IV . Q10H [facility] Rx#:[id number] Oral 300 Output: Urine 500 Estimated Blood Loss 20 Other: Voiding Method Urinal # Voids 1 - Labs CBC & Chem 7: 12/20/20 10:18 12/19/20 07:55 Labs: Abnormal Lab Results - Last 24 Hours (Table) 12/20/20 12/20/20 Range/Units 00:04 10:18 RBC 3.32 L (4.30-5.90) m/uL Hgb 10.0 L (13.0-17.5) gm/dL Hct 29.6 L (39.0-53.0) % Plt Count 139 L (150-450) k/uL Urine Ketones Trace H (Negative)
--- NOTE | 2020-12-20 13:14 | P.PN ---
Subjective Progress Note Date: 12/20/20 Principal diagnosis: Status post IM nail right intertrochanteric femur fracture Patient was evaluated at bedside, his is present. He has not improved with therapy yet. His pain is well-controlled. He is urinating with no difficulties, he is passing gas. He denies any headaches, lightheadedness, chest pain or shortness of breath. Objective - Vital Signs Vital signs: Vital Signs Temp 98.9 F 12/20/20 11:15 Pulse 85 12/20/20 11:15 Resp 20 12/20/20 11:15 BP 112/69 12/20/20 11:15 Pulse Ox 92 L 12/20/20 11:20 Intake & Output 12/19/20 12/20/20 12/20/20 18:59 06:59 18:59 Intake Total 850 1300 Output Total 20 500 Balance 830 800 Intake: IV 450 Intake, IV Titration 400 1000 Amount Sodium Chloride 0.9% 1, 400 1000 000 ml @ 100 mls/hr IV . Q10H [facility] Rx#:[id number] Oral 300 Output: Urine 500 Estimated Blood Loss 20 Other: Voiding Method Urinal # Voids 1 - Exam Right lower extremity: Incision is clean, dry, and intact. The silvestre are in good position and condition. There is minimal soft tissue swelling and ecchymosis surrounding the medial and lateral aspects of the incision. Calf is soft, no tenderness with palpation. Plantar flexion, dorsiflexion, EHL, FHL are intact. Sensory exam to light touch throughout the extremity is intact, dorsal pedis pulses 2+. - Labs CBC & Chem 7: 12/20/20 10:18 12/19/20 07:55 Labs: Abnormal Lab Results - Last 24 Hours (Table) 12/20/20 12/20/20 Range/Units 00:04 10:18 RBC 3.32 L (4.30-5.90) m/uL Hgb 10.0 L (13.0-17.5) gm/dL Hct 29.6 L (39.0-53.0) % Plt Count 139 L (150-450) k/uL Urine Ketones Trace H (Negative) Assessment and Plan Assessment: Postop day #1 status post IM nail right intertrochanteric femur fracture Plan: Pain control, continue oral medication as needed DVT prophylaxis, continue current medication. Plan for discharge and aspirin 81 mg twice a day Wound care instructions were discussed, the bandages were changed at bedside. Encourage incentive spirometer Physical therapy evaluation, walker at all times Medical specialty recommendations Discharge planning: discharge to either home or rehab in the next day or two Time with Patient: Less than 30
[2020-12-20] MEDS: ASPIRIN 81 MG PO SCH (13:24)
[2020-12-20] MEDS: TAMSULOSIN 0.4 MG CAP.ER.24H PO SCH (13:24)
[2020-12-20] MEDS: SODIUM CHLORIDE 0.9% 1,000 ML IV SCH ×2 (13:25→20:51)
[2020-12-20] MEDS: HYDROcodone/APAP 5-325MG 1 EACH TAB PO PRN ×2 (15:40→20:51)
--- NOTE | 2020-12-20 18:01 | P.PN ---
Progress Note - Text Progress Note Date: 12/20/20 - Chief Complaint Right femur fracture Consultation: This is a pleasant 85-year-old patient who follows with Dr. Jason Donnelly. Prepleater Dr. Avalos. Chronic stable medical conditions include hyperlipidemia, hypertension, coronary artery disease with bypass. He was working on a ladder, lost his balance falling on his right hip. X-rays in the ER did confirm a right femur fracture. Patient's current good exercise tolerance. No chest pain no shortness of breath. Able to do a flight of stairs and walk at least 2 blocks. Has no active cardiac symptoms. Earlier in the day had cleared the patient for surgery from medical standpoint. Patient underwent nailing of the right femur. Postprocedure pain is controlled. No chest pain or shortness of breath. at the bedside. She did have a stress test within the year that was reportedly unremarkable per the patient Today: Yesterday evening patient spiked a fever. Patient denies any urinary or respiratory symptoms. Incision healing well as per orthopedics. Blood and urine cultures sent off. Patient otherwise feels well. Review of systems: Was done for constitutional, cardiovascular, GI, pulmonary. relevant finding as above Active Medications Acetaminophen (Acetaminophen Tab 500 Mg Tab) 500 mg PO Q6HR PRN PRN Reason: Fever and/ or Pain Last Admin: 12/20/20 05:02 Dose: 500 mg Documented by: Hydrocodone Bitart/Acetaminophen (Hydrocodone/Apap 5-325mg 1 Each Tab) 1 each PO Q4HR PRN PRN Reason: Pain Hydrocodone Bitart/Acetaminophen (Hydrocodone/Apap 5-325mg 1 Each Tab) 2 each PO Q4HR PRN PRN Reason: Pain Last Admin: 12/20/20 15:40 Dose: 2 each Documented by: Amlodipine Besylate (Amlodipine 5 Mg Tab) 5 mg PO DAILY [facility] Last Admin: 12/20/20 09:15 Dose: 5 mg Documented by: Aspirin (Aspirin 81 Mg) 81 mg PO DAILY [facility] Last Admin: 12/20/20 13:24 Dose: 81 mg Documented by: Atorvastatin Calcium (Atorvastatin 80 Mg Tab) 80 mg PO HS [facility] Last Admin: 12/19/20 20:00 Dose: 80 mg Documented by: Enoxaparin Sodium (Enoxaparin 40 Mg/0.4 Ml Syringe) 40 mg SQ DAILY [facility] Last Admin: 12/20/20 09:16 Dose: 40 mg Documented by: Gabapentin (Gabapentin 100 Mg Cap) 100 mg PO TID PRN PRN Reason: Pain Last Admin: 12/19/20 14:54 Dose: 100 mg Documented by: Sodium Chloride (Saline 0.9%) 1,000 mls @ 100 mls/hr IV .Q10H [facility] Last Admin: 12/20/20 13:25 Dose: 100 mls/hr Documented by: Lisinopril (Lisinopril 20 Mg Tab) 20 mg PO BID [facility] Last Admin: 12/20/20 09:15 Dose: 20 mg Documented by: Morphine Sulfate (Morphine Sulfate 4 Mg/Ml Syringe) 4 mg IVP Q4HR PRN PRN Reason: Pain Last Admin: 12/20/20 09:19 Dose: 4 mg Documented by: Naloxone HCl (Naloxone 0.4 Mg/Ml 1 Ml Vial) 0.2 mg IV Q2M PRN PRN Reason: Opioid Reversal Sertraline HCl (Sertraline 25 Mg Tab) 25 mg PO DAILY [facility] Last Admin: 12/20/20 09:16 Dose: 25 mg Documented by: Tamsulosin HCl (Tamsulosin 0.4 Mg Cap.Er.24h) 0.4 mg PO PC-BRKFST [facility] Last Admin: 12/20/20 13:24 Dose: 0.4 mg Documented by: Triamcinolone Acetonide (Triamcinolone 0.1% Cream 80 Gm Tube) 1 applic TOPICAL BID [facility] Last Admin: 12/20/20 09:16 Dose: 1 applic Documented by: Valacyclovir HCl (Valacyclovir Hcl 1,000 Mg Tablet) 1,000 mg PO TID [facility] Last Admin: 12/20/20 15:39 Dose: 1,000 mg Documented by: Past medical history to include: Hypertension, hyperlipidemia, shingles, coronary artery disease with bypass, prostate cancer treated with prostatectomy Social history: . Alcohol occasionally. No smoking. Retired Family history: Reviewed, noncontributory to presentation Physical examination: VITAL SIGNS: 101.2, 95, 20, 121/65, 96% on 1 L GENERAL: laying in bed, awake comfortable. EYES: Pupils equal. Conjunctiva normal. NECK: JVD not raised; masses not palpable. HEART: First and second heart sounds are normal; no edema. LUNGS: Respiratory rate normal; clear to auscultation. MUSCULAR skeletal: Evidence of OA. Dressing over the right hip incision ABDOMEN: Soft, nontender, liver spleen not palpable, no masses palpable. PSYCH: Alert and oriented x3; mood and affect normal. INVESTIGATIONS, reviewed in the clinical context: December 20: WBC 5.8 hemoglobin 10 platelets 139. Pro-calcitonin 0.19 UA: Negative WBC 6.9 hemoglobin 11.2 platelets 178 potassium 6 repeat 4.0 creatinine 0.8 Coronavirus [PCR]: Not detected EKG tracing: Sinus rhythm with first-degree AV block, right bundle branch block evidence of inferior [place] Assessment and plan: -Right femur fracture, secondary to fall followed by ID nailing -Postoperative fever. This well could be reactive from surgery. No obvious clinical evidence of infection. Patient denies any respiratory or urinary symptoms.-New today Blood cultures pending. X-ray 2 views. Follow clinically for now for antibiotics for now -Coronary artery disease with prior history of carotid bypass, stable Patient on Norvasc, Lipitor, CUCA inhibitor -Essential hypertension On Norvasc and lisinopril -Anxiety depression otherwise specified Continue with Zoloft -Hyperlipidemia Continue with Lipitor -Primary osteoarthritis, bilateral multiple joints When necessary pain medications -DVT prophylaxis Add subcu Lovenox Blood cultures, UA plus culture. Chest x-ray ordered. Discussed with patient and .
[2020-12-21] MEDS: SODIUM CHLORIDE 0.9% 1,000 ML IV SCH ×2 (04:13→15:20)
[2020-12-21] MEDS: HYDROcodone/APAP 5-325MG 1 EACH TAB PO PRN ×3 (04:33→18:13)
[2020-12-21 05:26] LABS: African American GFR (CKD) 83 (>60 ml/min/1.73 sqM); Anion Gap 4 mmol/L; Blood Urea Nitrogen 18 mg/dL (9-20); Calcium 7.9 mg/dL (8.4-10.2); Carbon Dioxide 22 mmol/L (22-30); Chloride 110 mmol/L (98-107); Glucose 139 mg/dL (74-99); Non-African American GFR(CKD) 72 (>60 ml/min/1.73 sqM); Potassium 3.9 mmol/L (3.5-5.1); Sodium 136 mmol/L (137-145)
[2020-12-21 05:47] LABS: Basophils % (A) 0 %; Eosinophils % (A) 1 %; HCT 25.5 % (39.0-53.0); Lymphocytes # (A) 0.9 k/uL (1.0-4.8); Lymphocytes % (A) 21 %; MCH 28.7 pg (25.0-35.0); MCHC 32.4 g/dL (31.0-37.0); MCV 88.7 fL (80.0-100.0); Mean Platelet Volume 7.7; Monocytes # (A) 0.3 k/uL (0-1.0); Monocytes % (A) 8 %; Neutrophils # (A) 2.8 k/uL (1.3-7.7); Neutrophils % (A) 68 %; Platelet Count 127 k/uL (150-450); RBC 2.87 m/uL (4.30-5.90); RDW 14.8 % (11.5-15.5); WBC 4.1 k/uL (3.8-10.6)
[2020-12-21 06:08] LABS: HGB 8.2 gm/dL (13.0-17.5)
[2020-12-21] MEDS: ASPIRIN 81 MG PO SCH (08:41)
[2020-12-21] MEDS: valACYclovir HCL 1,000 MG TABLET PO SCH ×3 (08:41→20:18)
[2020-12-21] MEDS: ENOXAPARIN 40 MG/0.4 ML SYRINGE SQ SCH (08:41)
[2020-12-21] MEDS: SERTRALINE 25 MG TAB PO SCH (08:41)
[2020-12-21] MEDS: TAMSULOSIN 0.4 MG CAP.ER.24H PO SCH (08:41)
[2020-12-21] MEDS: lisinopriL 20 MG TAB PO SCH (08:41)
[2020-12-21] MEDS: amLODIPine 5 MG TAB PO SCH (08:41)
[2020-12-21] MEDS: FERROUS SULFATE 325 MG TAB PO SCH ×2 (08:43→17:29)
[2020-12-21] MEDS: TRIAMCINOLONE 0.1% CREAM 80 GM TUBE TOPICAL SCH ×2 (08:43→20:19)
--- NOTE | 2020-12-21 10:49 | P.CONS ---
History of Present Illness - Chief Complaint Walking difficulty - History of Present Illness I had the opportunity to see patient for inpatient rehab consultation with regard to walking difficulty. [facility] to right hip and right wrist pain. Evaluated by Dr. Donnelly who diagnosed right wrist contusion and right hip IT fracture. Underwent IM nailing. Seen me dically by Dr. Santana. X-rays followed. Started therapies. PT reports maximal assistance for bed mobility and minimal assistance for gait 30 feet with roller walker. OT reports supervision for upper dressing, moderate assist for lower dressing and minimal assistance for bathing. Previous functional history as elicited patient corroborative by : 85-year-old right-handed white male who is lives and 3 floor home with . Both are retired. does the cooking and laundry. Patient previously did the driving and did a standing shower. PCP Dr. Jason Donnelly. Denies tobacco. Has rare drink. Family history both parents with heart disease. Review of Systems Review of systems: ENT: Denies sneezes or discharge. Eyes: Denies discharge or photophobia. Cardiac: Denies chest pain or palpitation. Pulmonary: Denies cough or shortness of breath. Gastrointestinal: Denies nausea, emesis, constipation, diarrhea. Genitourinary: Denies discharge or frequency. Musculoskeletal: Right hip discomfort. Neurologic: Denies motor or sensory change. Endocrine: Denies shakes or sweats. Oncology: Denies cancers. Dermatologic: Denies rash, itching, pruritus. ALLERGY/immunology: Denies sneezes, rashes. Past Medical History Past Medical History: Cancer, Hyperlipidemia, Hypertension Additional Past Medical History / Comment(s): prostate CA, shingles History of Any Multi-Drug Resistant Organisms: None Reported Past Surgical History: Coronary Bypass/CABG, Hernia Repair, Prostate Surgery Additional Past Surgical History / Comment(s): ankle surgery Past Anesthesia/Blood Transfusion Reactions: No Reported Reaction Past Psychological History: Anxiety Smoking Status: Never smoker Past Alcohol Use History: Occasional Past Drug Use History: None Reported - Past Family History Daughter(s) Family Medical History: No Reported History Medications and Allergies Home Medications Medication Instructions Recorded Confirmed Type Atorvastatin [Lipitor] 80 mg PO HS #30 tab 06/08/14 12/18/20 Rx Sertraline [Zoloft] 25 mg PO DAILY #30 tab 06/08/14 12/18/20 Rx amLODIPine [Norvasc] 5 mg PO DAILY 08/20/20 12/18/20 History lisinopriL 20 mg PO BID 08/20/20 12/18/20 History valACYclovir HCL 1,000 mg PO TID 7 Days tab 11/29/20 12/18/20 Rx Gabapentin [Neurontin] 100 mg PO TID PRN 12/18/20 12/18/20 History HYDROcodone/APAP 5-325MG [[place] 1 tab PO Q4HR PRN 12/18/20 12/18/20 History 5-325] Triamcinolone 0.1% Cream [Kenalog 1 applicatio TOPICAL BID 12/18/20 12/18/20 History 0.1% Cream] Allergies Allergy/AdvReac Type Severity Reaction Status Date / Time No Known Allergies Allergy Verified 12/18/20 20:23 Physical Exam Vitals: Vital Signs Temp Pulse Resp BP Pulse Ox 12/21/20 05:52 98.8 F 12/21/20 04:19 100.8 F H 94 20 138/55 92 L 12/20/20 20:06 98.4 F 57 L 16 109/55 93 L 12/20/20 20:00 57 L 16 12/20/20 11:20 92 L 12/20/20 11:15 98.9 F 85 20 112/69 88 L Intake and Output 12/20/20 12/21/20 12/21/20 22:59 06:59 14:59 Intake Total 1000 Output Total 500 Balance 500 Intake: Intake, IV Titration 1000 Amount Sodium Chloride 0.9% 1, 1000 000 ml @ 100 mls/hr IV . Q10H [facility] Rx#:[id number] Output: Urine 500 Other: Voiding Method Urinal # Voids 2 Skin: Atrophic, intact. General: Medium build and comfortable appearance. Head: Normocephalic, atraumatic. Eyes: Symmetric. Pupils equal round. Ears: Symmetric. Hearing within normal limits. Mouth: Clear. Neck: Supple. Carotid without bruit. Cardiac: Regular rate and rhythm. Lungs: Clear anteriorly and posteriorly. Abdomen: Soft active nontender. Extremities: Normal tone. Neurological: Mental status: Alert, cooperative, pleasant. Cranial nerves: Symmetric facial tone and trapezius. Motor: Active movement both arms greater than antigravity. At least antigravity left leg. Difficulty elevating right leg off of Renuka chair due to right hip. Active movement both ankles and hands. Sensation: Intact throughout. DTRs: Symmetric and equal throughout. Mobility: Patient sitting up in Renuka chair and just had therapy so did not attempt to stand on my own. Results CBC & Chem 7: 12/21/20 04:53 12/21/20 04:53 Labs: Abnormal Lab Results - Last 24 Hours (Table) 12/20/20 12/20/20 12/21/20 Range/Units 10:18 11:30 04:53 RBC 3.32 L 2.87 L (4.30-5.90) m/uL Hgb 10.0 L 8.2 L D (13.0-17.5) gm/dL Hct 29.6 L 25.5 L (39.0-53.0) % Plt Count 139 L 127 L (150-450) k/uL Lymphocytes # 0.9 L (1.0-4.8) k/uL Sodium (137-145) mmol/L Chloride (98-107) mmol/L Glucose (74-99) mg/dL Calcium (8.4-10.2) mg/dL Procalcitonin 0.19 H (0.02-0.09) ng/mL 12/21/20 Range/Units 04:53 RBC (4.30-5.90) m/uL Hgb (13.0-17.5) gm/dL Hct (39.0-53.0) % Plt Count (150-450) k/uL Lymphocytes # (1.0-4.8) k/uL Sodium 136 L (137-145) mmol/L Chloride 110 H (98-107) mmol/L Glucose 139 H (74-99) mg/dL Calcium 7.9 L (8.4-10.2) mg/dL Procalcitonin (0.02-0.09) ng/mL Microbiology - Last 24 Hours (Table) 12/19/20 19:59 Blood Culture - Preliminary Blood No Growth after 24 hours Assessment and Plan (1) Intertrochanteric fracture of right hip Current Visit: Yes Status: Acute Code(s): S72.141A - DISPLACED INTERTROCHANTERIC FRACTURE OF RIGHT FEMUR, INIT SNOMED Code(s): 957334406 Plan: Impression: 1. Walking only. 2. Right hip IT fracture status post IM nailing. 3. Right wrist contusion. 5. Hypertension. 6. Disability. 7. History of cancer. Comments and plan: At this time PT and OT are ongoing. Discussed possible inpatient rehab but both patient and does little too early to consider this option.
[2020-12-21] MEDS ORDERED: traMADol 50 MG TAB PO PRN (12:48)
--- NOTE | 2020-12-21 14:48 | XR ---
EXAMINATION TYPE: XR chest 2V DATE OF EXAM: 12/21/2020 COMPARISON: 11/29/2020 HISTORY: Fever of unknown origin TECHNIQUE: 2 view chest FINDINGS: Heart size is normal. Pulmonary vasculature is normal. There are patchy densities in the bi lateral lungs. Findings could be related to pleural plaque. Consider CT chest for evaluation. IMPRESSION: 1. Patchy densities within the lungs are likely due to pleural plaquing similar to prior study. This could be evaluated with CT chest.
--- NOTE | 2020-12-21 15:57 | P.PN ---
Subjective Progress Note Date: 12/21/20 Principal diagnosis: Status post IM nail right intertrochanteric femur fracture Patient was evaluated at bedside, his is present. Patient did get up with physical therapy and ambulated in the room. His pain is well-controlled. He is urinating with no difficulties, he is passing gas. He denies any headaches, lightheadedness, chest pain or shortness of breath. Objective - Vital Signs Vital signs: Vital Signs Temp 98.1 F 12/21/20 11:18 Pulse 62 12/21/20 11:18 Resp 14 12/21/20 11:18 BP 119/66 12/21/20 12:25 Pulse Ox 97 12/21/20 11:18 Intake & Output 12/20/20 12/21/20 12/21/20 18:59 06:59 18:59 Intake Total 1000 Output Total 500 Balance 500 Intake: Intake, IV Titration 1000 Amount Sodium Chloride 0.9% 1, 1000 000 ml @ 100 mls/hr IV . Q10H [facility] Rx#:[id number] Output: Urine 500 Other: Voiding Method Urinal # Voids 2 - Exam Right lower extremity: Incision is clean, dry, and intact. The silvestre are in good position and condition. There is minimal soft tissue swelling and ecchymosis surrounding the medial and lateral aspects of the incision. Calf is soft, no tenderness with palpation. Plantar flexion, dorsiflexion, EHL, FHL are intact. Sensory exam to light touch throughout the extremity is intact, dorsal pedis pulses 2+. - Labs CBC & Chem 7: 12/21/20 04:53 12/21/20 04:53 Labs: Abnormal Lab Results - Last 24 Hours (Table) 12/20/20 12/21/20 12/21/20 Range/Units 11:30 04:53 04:53 RBC 2.87 L (4.30-5.90) m/uL Hgb 8.2 L D (13.0-17.5) gm/dL Hct 25.5 L (39.0-53.0) % Plt Count 127 L (150-450) k/uL Lymphocytes # 0.9 L (1.0-4.8) k/uL Sodium 136 L (137-145) mmol/L Chloride 110 H (98-107) mmol/L Glucose 139 H (74-99) mg/dL Calcium 7.9 L (8.4-10.2) mg/dL Procalcitonin 0.19 H (0.02-0.09) ng/mL Microbiology - Last 24 Hours (Table) 12/19/20 19:59 Blood Culture - Preliminary Blood No Growth after 24 hours Assessment and Plan Assessment: Postop day #1 status post IM nail right intertrochanteric femur fracture Plan: Pain control, did decrease oral pain medication DVT prophylaxis, continue current medication. Plan for discharge and aspirin 81 mg twice a day Wound care instructions were discussed, the bandages were changed at bedside. Velcro wrist was ordered for right wrist sprain Encourage incentive spirometer Physical therapy evaluation, walker at all times Medical specialty recommendations Discharge planning: discharge to either home or rehab in the next day or two Time with Patient: Less than 30
--- NOTE | 2020-12-21 19:32 | P.PN ---
Progress Note - Text Progress Note Date: 12/21/20 - Chief Complaint Right femur fracture Consultation: This is a pleasant 85-year-old patient who follows with Dr. Jason Donnelly. [employer] Dr. Avalos. Chronic stable medical conditions include hyperlipidemia, hypertension, coronary artery disease with bypass. He was working on a ladder, lost his balance falling on his right hip. X-rays in the ER did confirm a right femur fracture. Patient's current good exercise tolerance. No chest pain no shortness of breath. Able to do a flight of stairs and walk at least 2 blocks. Has no active cardiac symptoms. Earlier in the day had cleared the patient for surgery from medical standpoint. Patient underwent nailing of the right femur. Postprocedure pain is controlled. No chest pain or shortness of breath. at the bedside. She did have a stress test within the year that was reportedly unremarkable per the patient. Did spike a fever postoperatively. [place] to be reactive fever from surgery. Infection workup negative. Today: Doing better. Oral intake is good. No new issues. Denies any urinary or respiratory symptoms. Incision healing well. Seen by Dr. Miranda from rehab Review of systems: Was done for constitutional, cardiovascular, GI, pulmonary. relevant finding as above Active Medications Acetaminophen (Acetaminophen Tab 500 Mg Tab) 500 mg PO Q6HR PRN PRN Reason: Fever and/ or Pain Last Admin: 12/20/20 05:02 Dose: 500 mg Documented by: Hydrocodone Bitart/Acetaminophen (Hydrocodone/Apap 5-325mg 1 Each Tab) 1 each PO Q4HR PRN PRN Reason: Pain Last Admin: 12/21/20 18:13 Dose: 1 each Documented by: Amlodipine Besylate (Amlodipine 5 Mg Tab) 5 mg PO DAILY [facility] Last Admin: 12/21/20 08:41 Dose: 5 mg Documented by: Aspirin (Aspirin 81 Mg) 81 mg PO DAILY [facility] Last Admin: 12/21/20 08:41 Dose: 81 mg Documented by: Atorvastatin Calcium (Atorvastatin 80 Mg Tab) 80 mg PO HS [facility] Last Admin: 12/19/20 20:00 Dose: 80 mg Documented by: Enoxaparin Sodium (Enoxaparin 40 Mg/0.4 Ml Syringe) 40 mg SQ DAILY [facility] Last Admin: 12/21/20 08:41 Dose: 40 mg Documented by: Ferrous Sulfate (Ferrous Sulfate 325 Mg Tab) 325 mg PO BID-W/MEALS [facility] Last Admin: 12/21/20 17:29 Dose: 325 mg Documented by: Gabapentin (Gabapentin 100 Mg Cap) 100 mg PO TID PRN PRN Reason: Pain Last Admin: 12/19/20 14:54 Dose: 100 mg Documented by: Sodium Chloride (Saline 0.9%) 1,000 mls @ 100 mls/hr IV .Q10H [facility] Last Admin: 12/21/20 15:20 Dose: 100 mls/hr Documented by: Lisinopril (Lisinopril 20 Mg Tab) 20 mg PO BID [facility] Last Admin: 12/21/20 08:41 Dose: 20 mg Documented by: Morphine Sulfate (Morphine Sulfate 4 Mg/Ml Syringe) 4 mg IVP Q4HR PRN PRN Reason: Pain Last Admin: 12/20/20 09:19 Dose: 4 mg Documented by: Naloxone HCl (Naloxone 0.4 Mg/Ml 1 Ml Vial) 0.2 mg IV Q2M PRN PRN Reason: Opioid Reversal Sertraline HCl (Sertraline 25 Mg Tab) 25 mg PO DAILY [facility] Last Admin: 12/21/20 08:41 Dose: 25 mg Documented by: Tamsulosin HCl (Tamsulosin 0.4 Mg Cap.Er.24h) 0.4 mg PO PC-BRKFST [facility] Last Admin: 12/21/20 08:41 Dose: 0.4 mg Documented by: Tramadol HCl (Tramadol 50 Mg Tab) 50 mg PO QID PRN PRN Reason: Breakthrough Pain Triamcinolone Acetonide (Triamcinolone 0.1% Cream 80 Gm Tube) 1 applic TOPICAL BID [facility] Last Admin: 12/21/20 08:43 Dose: 1 applic Documented by: Valacyclovir HCl (Valacyclovir Hcl 1,000 Mg Tablet) 1,000 mg PO TID [facility] Last Admin: 12/21/20 15:19 Dose: 1,000 mg Documented by: Past medical history to include: Hypertension, hyperlipidemia, shingles, coronary artery disease with bypass, prostate cancer treated with prostatectomy Social history: . Alcohol occasionally. No smoking. Retired Family history: Reviewed, noncontributory to presentation Physical examination: VITAL SIGNS: 98.1, 62, 14, 119/56, 97% on 3 daughters GENERAL: laying in bed, awake comfortable. EYES: Pupils equal. Conjunctiva normal. NECK: JVD not raised; masses not palpable. HEART: First and second heart sounds are normal; no edema. LUNGS: Respiratory rate normal; clear to auscultation. MUSCULAR skeletal: Evidence of OA. Incision over the right thigh is healing well ABDOMEN: Soft, nontender, liver spleen not palpable, no masses palpable. PSYCH: Alert and oriented x3; mood and affect normal. INVESTIGATIONS, reviewed in the clinical context: December 21: 4.1 hemoglobin 8.2 potassium 3.9 and 0.97 December 20: WBC 5.8 hemoglobin 10 platelets 139. Pro-calcitonin 0.19 UA: Negative WBC 6.9 hemoglobin 11.2 platelets 178 potassium 6 repeat 4.0 creatinine 0.8 Coronavirus [PCR]: Not detected EKG tracing: Sinus rhythm with first-degree AV block, right bundle branch block evidence of inferior [place] Assessment and plan: -Right femur fracture, secondary to fall followed by ID nailing -Postoperative fever. This well could be reactive from surgery. No obvious clinical evidence of infection. Patient denies any respiratory or urinary symptoms.-, Incision healing well-improving Current medication of antibiotics. -Coronary artery disease with prior history of carotid bypass, stable Patient on Norvasc, Lipitor, CUCA inhibitor -Essential hypertension On Norvasc and lisinopril -Anxiety depression otherwise specified Continue with Zoloft -Hyperlipidemia Continue with Lipitor -Primary osteoarthritis, bilateral multiple joints When necessary pain medications -DVT prophylaxis Add subcu Lovenox -Acute postprocedure blood loss anemia, expected from surgery Ferrous sulfate added Discussed the Dr. Merino from rehab. Patient be related accepted there. We will watch patient for 24 hours. If remains stable then DC to rehab tomorrow.
[2020-12-21] MEDS: ATORVASTATIN 80 MG TAB PO SCH (20:18)
[2020-12-22] MEDS: HYDROcodone/APAP 5-325MG 1 EACH TAB PO PRN ×3 (04:48→13:48)
[2020-12-22 08:15] LABS: Basophils % (A) 0 %; Eosinophils # (A) 0.1 k/uL (0-0.7); Eosinophils % (A) 2 %; HCT 24.5 % (39.0-53.0); HGB 8.1 gm/dL (13.0-17.5); Lymphocytes # (A) 0.7 k/uL (1.0-4.8); Lymphocytes % (A) 17 %; MCH 29.4 pg (25.0-35.0); MCHC 33.1 g/dL (31.0-37.0); MCV 88.7 fL (80.0-100.0); Mean Platelet Volume 8.4; Monocytes # (A) 0.3 k/uL (0-1.0); Monocytes % (A) 7 %; Neutrophils # (A) 2.9 k/uL (1.3-7.7); Neutrophils % (A) 72 %; Platelet Count 135 k/uL (150-450); RBC 2.76 m/uL (4.30-5.90); RDW 14.4 % (11.5-15.5)
[2020-12-22] MEDS: SERTRALINE 25 MG TAB PO SCH (08:56)
[2020-12-22] MEDS: ASPIRIN 81 MG PO SCH (08:56)
[2020-12-22] MEDS: ENOXAPARIN 40 MG/0.4 ML SYRINGE SQ SCH (08:56)
[2020-12-22] MEDS: TAMSULOSIN 0.4 MG CAP.ER.24H PO SCH (08:56)
[2020-12-22] MEDS: valACYclovir HCL 1,000 MG TABLET PO SCH (08:57)
[2020-12-22] MEDS: FERROUS SULFATE 325 MG TAB PO SCH (08:57)
[2020-12-22] MEDS ORDERED: lisinopriL 20 MG TAB PO SCH (09:00)
[2020-12-22] MEDS: TRIAMCINOLONE 0.1% CREAM 80 GM TUBE TOPICAL SCH (09:22)
--- NOTE | 2020-12-22 10:05 | P.PN ---
Subjective Progress Note Date: 12/22/20 Principal diagnosis: Status post IM nail right intertrochanteric femur fracture Patient was evaluated at bedside. Patient did get up with physical therapy and ambulated in the room. His pain is well-controlled. He is urinating with no difficulties, he is passing gas. He denies any headaches, lightheadedness, chest pain or shortness of breath. Objective - Vital Signs Vital signs: Vital Signs Temp 98 F 12/22/20 04:13 Pulse 88 12/22/20 04:13 Resp 18 12/22/20 04:13 BP 148/73 12/22/20 04:13 Pulse Ox 93 L 12/22/20 08:22 Intake & Output 12/21/20 12/22/20 12/22/20 18:59 06:59 18:59 Intake Total 1200 500 Output Total 600 Balance 1200 -100 Intake: Intake, IV Titration 1200 Amount Sodium Chloride 0.9% 1, 1200 000 ml @ 100 mls/hr IV . Q10H DOMINIQUE Rx#:[id number] Oral 500 Output: Urine 600 Other: Voiding Method Urinal # Voids 1 1 # Bowel Movements 1 - Exam Right lower extremity: Incision is clean, dry, and intact. The silvestre are in good position and cond ition. There is minimal soft tissue swelling and ecchymosis surrounding the medial and lateral aspects of the incision. Calf is soft, no tenderness with palpation. Plantar flexion, dorsiflexion, EHL, FHL are intact. Sensory exam to light touch throughout the extremity is intact, dorsal pedis pulses 2+. - Labs CBC & Chem 7: 12/22/20 08:04 12/21/20 04:53 Labs: Abnormal Lab Results - Last 24 Hours (Table) 12/22/20 Range/Units 08:04 RBC 2.76 L (4.30-5.90) m/uL Hgb 8.1 L (13.0-17.5) gm/dL Hct 24.5 L (39.0-53.0) % Plt Count 135 L (150-450) k/uL Lymphocytes # 0.7 L (1.0-4.8) k/uL Microbiology - Last 24 Hours (Table) 12/19/20 19:59 Blood Culture - Preliminary Blood No Growth after 48 hours Assessment and Plan Assessment: Postop day #2 status post IM nail right intertrochanteric femur fracture Acute blood loss anemia, expected surgical outcome Plan: Pain control, did decrease oral pain medication DVT prophylaxis, continue current medication. Plan for discharge and aspirin 81 mg twice a day Wound care instructions were discussed, the bandages were changed at bedside. Ferrous sulfate 325 mg twice a day for anemia Velcro wrist was ordered for right wrist sprain Encourage incentive spirometer Physical therapy evaluation, walker at all times Medical specialty recommendations Discharge planning: On a orthopedic standpoint patient is stable for discharge to rehab today Time with Patient: Less than 30
[2020-12-22 12:06] VITALS: PULSE 70; RESP 19; TEMP 98.2
[2020-12-22 12:07] VITALS: BP 113/54
--- NOTE | 2020-12-22 14:04 | P.DS ---
Providers Date of admission: 12/18/20 21:03 Expected date of discharge: 12/22/20 Attending physician: Dre Santana Consults: 12/18/20 21:03 Consult Physician Stat Consulting Provider: Asim March Consult Reason/Comments: hip fracture Do you want consulting provider notified?: Already Contacted 12/18/20 21:05 Consult Physician Routine Consulting Provider: Mateus Samuel Consult Reason/Comments: cardiac clearance Do you want consulting provider notified?: Yes, Notify in am 12/21/20 09:11 Consult Physician Routine Consulting Provider: Fidel eMrino Consult Reason/Comments: IPR Do you want consulting provider notified?: Yes Primary care physician: [facility] Course: - Chief Complaint Right femur fracture Consultation: This is a pleasant 85-year-old patient who follows with Dr. Jason March. 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 Chronic stable medical conditions include hyperlipidemia, hypertension, coronary artery disease with bypass. He was working on a ladder, lost his balance falling on his right hip. X-rays in the ER did confirm a right femur fracture. Patient's current good exercise tolerance. No chest pain no shortness of breath. Able to do a flight of stairs and walk at least 2 blocks. Has no active cardiac symptoms. Earlier in the day had cleared the patient for surgery from medical standpoint. Patient underwent nailing of the right femur. Postprocedure pain is controlled. No chest pain or shortness of breath. at the bedside. She did have a stress test within the year that was reportedly unremarkable per the patient. Did spike a fever postoperatively. [place] to be reactive fever from surgery. Infection workup negative. Today: Patient walked to the door and back that is about 10 feet one-way, though unsteady on his feet. Otherwise doing well. No respiratory, urinary, other symptoms. Oral intake good. Granddaughter present in the room was a hospital nurse. Care was discussed in detail. Questions answered. Also spoke to patient's insurance company what appeared to. Review. Decreased that patient will qualify for a long-term facility. For rehab. Discussion and discharge planning more than 35 minutes Consultation: Dr. Asim [facility] Past medical history to include: Hypertension, hyperlipidemia, shingles, coronary artery disease with bypass, prostate cancer treated with prostatectomy Social history: . Alcohol occasionally. No smoking. Retired Family history: Reviewed, noncontributory to presentation Physical examination: VITAL SIGNS: 98.2, 70, 19, 113/54, 86% room air GENERAL: Sitting up in a chair, awake, comfortable EYES: Pupils equal. Conjunctiva normal. NECK: JVD not raised; masses not palpable. HEART: First and second heart sounds are normal; no edema. LUNGS: Respiratory rate normal; clear to auscultation. MUSCULAR skeletal: Evidence of OA. Incision over the right thigh is healing well ABDOMEN: Soft, nontender, liver spleen not palpable, no masses palpable. PSYCH: Alert and oriented x3; mood and affect normal. INVESTIGATIONS, reviewed in the clinical context: December 22: WBC 4 hemoglobin 8.1 platelets 135 December 21: 4.1 hemoglobin 8.2 potassium 3.9 and 0.97 December 20: WBC 5.8 hemoglobin 10 platelets 139. Pro-calcitonin 0.19 UA: Negative WBC 6.9 hemoglobin 11.2 platelets 178 potassium 6 repeat 4.0 creatinine 0.8 Coronavirus [PCR]: Not detected EKG tracing: Sinus rhythm with first-degree AV block, right bundle branch block evidence of inferior CT Assessment and plan: -Right femur fracture, secondary to fall followed by ID nailing -Postoperative fever. Reactive from surgery. Infectious workup negative -Coronary artery disease with prior history of carotid bypass, stable , Lipitor, CUCA inhibitor -Essential hypertension Norvasc [discontinued because of low blood pressure] and lisinopril -Anxiety depression otherwise specified Continue with Zoloft -Hyperlipidemia Continue with Lipitor -Primary osteoarthritis, bilateral multiple joints When necessary pain medications -DVT prophylaxis Add subcu Lovenox -Acute postprocedure blood loss anemia, expected from surgery Ferrous sulfate added Disposition: ECF/[facility] Plan - Discharge Summary Discharge Rx Participant: No New Discharge Prescriptions: New HYDROcodone/APAP 5-325MG [[place] 5-325] 1 tab PO Q4HR PRN 3 Days #18 tab PRN Reason: Pain Ferrous Sulfate [Iron (65 MG Elemental)] 325 mg PO BID #30 tab lisinopriL [Zestril] 20 mg PO DAILY tab Heparin Sodium,Porcine [Heparin Sodium] 5,000 unit SQ Q12HR #30 vial Aspirin 81 mg PO DAILY chew Tamsulosin [Flomax] 0.4 mg PO PC-BRKFST cap.er.24h Sennosides-Docusate Sodium [Senokot-S] 1 tab PO BID #1 tablet Acetaminophen Tab [Tylenol] 500 mg PO Q6HR PRN tab PRN Reason: Fever And/ Or Pain Continue Atorvastatin [Lipitor] 80 mg PO HS #30 tab Sertraline [Zoloft] 25 mg PO DAILY #30 tab Triamcinolone 0.1% Cream [Kenalog 0.1% Cream] 1 applicatio TOPICAL BID valACYclovir HCL 1,000 mg PO TID #12 tab Discontinued lisinopriL 20 mg PO BID amLODIPine [Norvasc] 5 mg PO DAILY HYDROcodone/APAP 5-325MG [[place] 5-325] 1 tab PO Q4HR PRN PRN Reason: Pain Gabapentin [Neurontin] 100 mg PO TID PRN PRN Reason: Pain Discharge Medication List Atorvastatin [Lipitor] 80 mg PO HS #30 tab 06/08/14 [Rx] Sertraline [Zoloft] 25 mg PO DAILY #30 tab 06/08/14 [Rx] Triamcinolone 0.1% Cream [Kenalog 0.1% Cream] 1 applicatio TOPICAL BID 12/18/20 [History] Acetaminophen Tab [Tylenol] 500 mg PO Q6HR PRN tab 12/22/20 [Rx] Aspirin 81 mg PO DAILY chew 12/22/20 [Rx] Ferrous Sulfate [Iron (65 MG Elemental)] 325 mg PO BID #30 tab 12/22/20 [Rx] HYDROcodone/APAP 5-325MG [[place] 5-325] 1 tab PO Q4HR PRN 3 Days #18 tab 12/22/20 [Rx] Heparin Sodium,Porcine [Heparin Sodium] 5,000 unit SQ Q12HR #30 vial 12/22/20 [Rx] Sennosides-Docusate Sodium [Senokot-S] 1 tab PO BID #1 tablet 12/22/20 [Rx] Tamsulosin [Flomax] 0.4 mg PO PC-BRKFST cap.er.24h 12/22/20 [Rx] lisinopriL [Zestril] 20 mg PO DAILY tab 12/22/20 [Rx] valACYclovir HCL 1,000 mg PO TID #12 tab 12/22/20 [Rx] Follow up Appointment(s)/Referral(s): Mateus Samuel MD [STAFF PHYSICIAN] - 2 Weeks Jason March MD [Primary Care Provider] - 1-2 [facility] - As Needed Robin Knight PAC [PHYSICIAN VOCATIONAL TRAINER] - 2 Weeks Activity/Diet/Wound Care/Special Instructions: Orthopedic discharge instructions: 1. Weight-bear as tolerated 2. Utilize walker at all times 3. Okay to remove silvestre 2 weeks after surgery, date of surgery was 12/19/2020 4. Ice to right lower extremity often 5 Utilize heparin 5000 units every 12 hours for DVT prophylaxis, patient will need DVT prophylaxis until 01/16/2021. 6. [facility] Discharge Disposition: TRANSFER TO SNF/ECF
--- NOTE | 2021-03-04 16:00 | CDI ---
"post-operative fever" is documented in IM PN on 12/20 and 12/21 and patient had a 12/19 R trochanteric IM nailing. Additional clarification is requested regarding the relationship, if any, that exists between the diagnosis and the procedure. Patients Admitting Diagnosis: R interotrochanteric femur fx Post-Operative Diagnosis: R interotrochanteric femur fx Procedure performed: Trochanteric IM nailing of the R femur fx History/Risk Factors: 85yo presented after a ground-level fall and a fractured femur. Clinical Indicators: D/C summary noted "post-operative fever. This could be reactive from surgery." Temp: 12/18 @ 1739 98.2 12/19 @ 1038 98.6 12/19 @ 1920 101.8 12/19 @ 2127 99.5 12/20 @ 0459 101.2 12/20 @ 1115 98.9 12/21 @ 0419 100.8 12/22 @ 1204 98.2 Treatment: monitoring What relationship, if any, exists between the diagnosis of post-operative fever and the procedure: [ ] Post-operative fever is a complication of surgical procedure [ ] Post-operative fever is an expected outcome of the surgical procedure [ ] Post-operative fever is not clinically significant [ ] Post-operative fever is related to patients co-morbid condition(s) & not a complication of the procedure [ ] Post-operative fever has been ruled out [ ] Other please specify [ ] Unable to determine (Template Last Revised: September 2020) Postoperative fever is not clinically significant MTDD
== END 2020-12-22 16:03 | DRG 481 ==
LOC: EC 16:48 → 5NMEDONC 21:03
PROVIDERS: ADMIT Hospitalist; ATTEND Hospitalist
PROC: 0QS636Z Reposition Right Upper Femur with Intramedullary Internal Fixation Device, Percutaneous Approach (ICD-10-PCS; principal; 2020-12-19 10:00)
DX: S72.144A Nondisplaced intertrochanteric fracture of right femur, initial encounter for closed fracture (principal); D62 Acute posthemorrhagic anemia; H59.323 Postprocedural hemorrhage of eye and adnexa following other procedure, bilateral; W01.0XXA Fall on same level from slipping, tripping and stumbling without subsequent striking against object, initial encounter; S60.211A Contusion of right wrist, initial encounter; Y92.009 Unspecified place in unspecified non-institutional (private) residence as the place of occurrence of the external cause; M15.9 Polyosteoarthritis, unspecified; E78.5 Hyperlipidemia, unspecified; F41.8 Other specified anxiety disorders; I10 Essential (primary) hypertension; I25.10 Atherosclerotic heart disease of native coronary artery without angina pectoris; I44.0 Atrioventricular block, first degree; I45.10 Unspecified right bundle-branch block; I25.2 Old myocardial infarction; Z74.1 Need for assistance with personal care; Z79.82 Long term (current) use of aspirin; Z79.899 Other long term (current) drug therapy; Z85.46 Personal history of malignant neoplasm of prostate; Z95.1 Presence of aortocoronary bypass graft; Y83.8 Other surgical procedures as the cause of abnormal reaction of the patient, or of later complication, without mention of misadventure at the time of the procedure; Z20.822 Contact with and (suspected) exposure to COVID-19; Z82.49 Family history of ischemic heart disease and other diseases of the circulatory system; B02.9 Zoster without complications; R50.9 Fever, unspecified
CPT/HCPCS: 71046; 73502; 80048; 80053; 81003; 84145; 85025; 85610; 85730; 87040; 87635; 93005; 94760; 99285

== ENCOUNTER 2021-05-04 17:44 | Observation (INO) | payer MEDICARE ==
[2021-05-04] MEDS ORDERED: DIPH,PERTUS(ACELL)TETVAC-LF 0.5 ML VIAL IM ONE (18:20)
[2021-05-04] MEDS ORDERED: HYDROmorphone 0.5 MG/0.5 ML SYRINGE IVP STA (18:20)
--- NOTE | 2021-05-04 18:29 | ED ---
General Adult HPI - General Chief complaint: Extremity Injury, Upper Stated complaint: Wrist injury Time Seen by Provider: 05/04/21 17:55 Source: patient, RN notes reviewed, old records reviewed Mode of arrival: ambulatory Limitations: no limitations - History of Present Illness Initial comments: This is an 85-year-old male who presents emergency Department complaining of right wrist pain. Patient states she was using a leaf blower when he walked int o his fifth wheel bumped his head and fell backwards and landed on his wrist. Patient states there is an area that the bleeding on the volar surface. Patient denies any headache patient denies loss of consciousness patient denies being days per patient denies any neck pain. Patient any other injury at this time. Patient is not sure when his last tetanus was. Patient states she's had bypass surgery in the past. - Related Data Home Medications Medication Instructions Recorded Confirmed Zolpidem [Ambien] 10 mg PO HS 05/04/21 05/04/21 amLODIPine [Norvasc] 5 mg PO DAILY 05/04/21 05/04/21 lisinopriL [Zestril] 20 mg PO BID 05/04/21 05/04/21 Previous Rx's Medication Instructions Recorded Atorvastatin [Lipitor] 80 mg PO HS #30 tab 06/08/14 Sertraline [Zoloft] 25 mg PO DAILY #30 tab 06/08/14 Aspirin 81 mg PO DAILY chew 12/22/20 Allergies Allergy/AdvReac Type Severity Reaction Status Date / Time No Known Allergies Allergy Verified 05/04/21 18:46 Review of Systems ROS Statement: Those systems with pertinent positive or pertinent negative responses have been documented in the HPI. ROS Other: All systems not noted in ROS Statement are negative. Past Medical History Past Medical History: Cancer, Hyperlipidemia, Hypertension Additional Past Medical History / Comment(s): prostate CA, shingles History of Any Multi-Drug Resistant Organisms: None Reported Past Surgical History: Coronary Bypass/CABG, Hernia Repair, Prostate Surgery Additional Past Surgical History / Comment(s): ankle surgery Past Anesthesia/Blood Transfusion Reactions: No Reported Reaction Past Psychological History: Anxiety Smoking Status: Never smoker Past Alcohol Use History: Occasional Past Drug Use History: None Reported - Past Family History Daughter(s) Family Medical History: No Reported History General Exam - General Exam Comments Initial Comments: GENERAL: Patient is well-developed and well-nourished. Patient is nontoxic and well- hydrated and is in moderate distress. ENT: Neck is soft and supple. No significant lymphadenopathy is noted. Oropharynx is clear. Moist mucous membranes. Neck has full range of motion without terrance citing any pain. EYES: The sclera were anicteric and conjunctiva were pink and moist. Extraocular movements were intact and pupils were equal round and reactive to light. Eyelids were unremarkable. PULMONARY: Unlabored respirations. Good breath sounds bilaterally. No audible rales rhonchi or wheezing was noted. CARDIOVASCULAR: There is a regular rate and rhythm without any murmurs gallops or rubs. ABDOMEN: Soft and nontender with normal bowel sounds. SKIN: Skin is clear with no lesions or rashes and otherwise unremarkable. NEUROLOGIC: Patient is alert and oriented x3. Cranial nerves II through XII are grossly intact. Motor and sensory are also intact. Normal speech, volume and content. Symmetrical smile. MUSCULOSKELETAL: Patient has a gross abnormality to the distal forearm with an open 1 cm wound on the volar surface. Patient does have good radial pulses. PSYCHIATRIC: Normal psychiatric evaluation. Limitations: no limitations Course Vital Signs 05/04/21 17:53 Temperature 98.0 F Pulse Rate 81 Respiratory 20 Rate Blood Pressure 138/75 O2 Sat by Pulse 97 Oximetry Medical Decision Making - Medical Decision Making X-ray shows a compound comminuted fracture of the distal radius and ulna. Patient received Ancef and tetanus and Dilaudid for pain. I spoke with Dr. Santana he agreed is admit the patient admitted the patient Dr. Osman and he will take the patient in a few hours to the OR. EKG shows atrial fibrillation 72 bpm QRS is under 44 QT interval 444 QTC is 486. Patient's EKG shows no ST segment elevation or depression. - Lab Data Result diagrams: 05/04/21 18:39 05/04/21 18:39 Disposition Clinical Impression: Open displaced comminuted fracture of shaft of left radius, Open displaced comminuted fracture of shaft of ulna Disposition: ADMITTED IP TO THIS [facility] Time of Disposition: 18:29
[2021-05-04] MEDS ORDERED: SODIUM CHLORIDE 0.9% 1,000 ML IV ONE (18:32)
[2021-05-04 18:53] LABS: Basophils % (A) 1 %; Eosinophils # (A) 0.1 k/uL (0-0.7); Eosinophils % (A) 2 %; HCT 37.4 % (39.0-53.0); HGB 11.7 gm/dL (13.0-17.5); Lymphocytes # (A) 2.7 k/uL (1.0-4.8); Lymphocytes % (A) 37 %; MCH 27.4 pg (25.0-35.0); MCHC 31.4 g/dL (31.0-37.0); MCV 87.2 fL (80.0-100.0); Mean Platelet Volume 7.8; Monocytes # (A) 0.4 k/uL (0-1.0); Monocytes % (A) 5 %; Neutrophils # (A) 3.9 k/uL (1.3-7.7); Neutrophils % (A) 54 %; Platelet Count 254 k/uL (150-450); RBC 4.29 m/uL (4.30-5.90); RDW 14.6 % (11.5-15.5); WBC 7.3 k/uL (3.8-10.6)
[2021-05-04 19:04] LABS: Albumin 4.1 g/dL (3.5-5.0); Calcium 9.7 mg/dL (8.4-10.2); Potassium 4.5 mmol/L (3.5-5.1); Total Bilirubin 0.6 mg/dL (0.2-1.3); Total Protein 6.8 g/dL (6.3-8.2)
[2021-05-04 19:06] LABS: INR 0.9 (<1.2); Partial Thromboplastin Time 23.4 sec (22.0-30.0); Prothrombin Time 9.9 sec (9.0-12.0)
[2021-05-04] MEDS ORDERED: LACTATED RINGERS 1,000 ML IV ONE (20:10)
--- NOTE | 2021-05-04 20:12 | XR ---
EXAMINATION TYPE: XR wrist limited RT DATE OF EXAM: 05/04/2021 COMPARISON: NONE HISTORY: 85 years Male. STUDY INDICATION GIVEN: pain/injury . TECHNIQUE: Frontal and lateral radiographs of the right wrist IMPRESSION: There are acute slightly comminuted fractures of the distal radius and ulnar shafts just proximal to the wrist joint. There is an approximate shaft width posterior (dorsal) displacement with an approxim ate 2 cm proximal over lap. One of the fractured fragments which is felt to be related to the distal ulna is dislocated medially. It is difficult to evaluate the radiocarpal joint due to bony overlap. There is clear disruption of t he distal radioulnar joint. No obvious acute fracture or dislocation is seen in the carpals, metacarpals or proximal phalanges. The soft tissue around the distal forearm is swollen.
[2021-05-04] MEDS ORDERED: ROPIVACAINE 5 MG/ML 30 ML VIAL MISCELLANE ONE (20:20)
--- NOTE | 2021-05-04 20:32 | P.ANPRN ---
Procedure Note - Anesthesia - Nerve Block Performed Right Axillary Single Time Out Performed: Yes (2018) Date of Procedure: 05/04/21 Procedure Start Time: : Procedure Stop Time: : Location of Patient: PreOp Indication: Acute Post-Operative Pain, Requested by Surgeon Specifically requested for management of pain by DrMaikel: Cesario Osman Sedation Type: Sedate with meaningful contact maintained Preparation: Sterile Prep Position: Supine Catheter: None Needle Types: Pajunk Needle Gauge: 21 Ultrasound used to visualize needle placement: Yes Ultrasound used to observe medication spread: Yes Injectate: 0.5% Ropivacaine (see comment for volume) (30cc Ropi 0.5% + NACL 10cc PF) Blood Aspirated: No Pain Paresthesia on Injection Noted: No Resistance on Injection: Normal Image Stored and Saved: Yes Events: Uneventful and Well Tolerated
--- NOTE | 2021-05-04 20:40 | XR ---
EXAMINATION TYPE: XR chest 1V portable DATE OF EXAM: 05/04/2021 COMPARISON: 12/21/2020 HISTORY: Pain TECHNIQUE: Single frontal view of the chest is obtained. FINDINGS: There are what appear to be calcified densities overlying both lung [place]k. The heart is e nlarged and is postoperative change with diffuse interstitial pattern, bilateral infiltrate and small effusion. No pneumothorax. IMPRESSION: 1. Pleural plaques and is best is related disease favored over pulmonary nodule. Short-term follow-up CT of the chest could be obtained. 2. Cardiomegaly correlate for bilateral infiltrate. Interstitial pneumonitis versus mild venous conge stion.
[2021-05-04] MEDS ORDERED: fentaNYL (PF) 50 MCG/ML 2 ML AMP ONE (21:19)
[2021-05-04] MEDS ORDERED: ROPIVACAINE 5 MG/ML 30 ML VIAL ONE (21:19)
[2021-05-04] MEDS ORDERED: LIDOCAINE 1% INJ 10MG/ML (20 ML MDV) ONE (21:19)
[2021-05-04] MEDS ORDERED: PROPOFOL 10 MG/ML 20 ML VIAL IV ONE (21:19)
[2021-05-04] MEDS ORDERED: IV FLUID CONTINUATION 1,000 ML IV ONE (21:22)
[2021-05-04] MEDS ORDERED: SODIUM CHLORIDE 0.9% 100 ML with ceFAZolin 2,000 MG IV ONE ×2 (21:22)
--- NOTE | 2021-05-04 22:38 | P.HPOR ---
History of Present Illness H&P Date: 05/04/21 Chief Complaint: Right wrist injury status post fall The patient is seen and examined in preoperative holding area. He is 85-year-old male who presented to the emergency room after sustaining a fall at home. He is right-hand dominant and he was doing some relief blowing at home and tripped and fell backwards onto his outstretched right hand. He is normally active and ambulatory and moves well without assistance. He had obvious deformity of his right wrist with bleeding and presented to the emergency room where he was found have a comminuted and displaced grade 1 open distal radius and ulna fracture. His neurovascular status was intact. He is improved that antibiotics and splinted in the emergency room. We're To the by the emergency room and discussed his treatment options. We felt that he would be best served with emergent irrigation and debridement of his open distal radius and ulna fracture with a potential fixation. The patient denies any other injuries. He denies any loss of consciousness. He denies any prior problems with his wrist and hand. He is right-hand dominant. He denies any pain at his hips and knees ankle feet. He denies any chest pain or shortness of breath. He denied any numbness tingling in his hands and fingers. Review of Systems As stated per HPI. No loss of consciousness. No headaches. No reports of other injury beyond his right wrist. No chest pain or shortness breath. No history of problems with his right hand and wrist. He is right-hand dominant. Past Medical History Past Medical History: Cancer, Hyperlipidemia, Hypertension Additional Past Medical History / Comment(s): prostate CA, shingles History of Any Multi-Drug Resistant Organisms: None Reported Past Surgical History: Coronary Bypass/CABG, Hernia Repair, Prostate Surgery Additional Past Surgical History / Comment(s): ankle surgery Past Anesthesia/Blood Transfusion Reactions: No Reported Reaction Past Psychological History: Anxiety Smoking Status: Never smoker Past Alcohol Use History: Occasional Past Drug Use History: None Reported - Past Family History Daughter(s) Family Medical History: No Reported History Medications and Allergies Home Medications Medication Instructions Recorded Confirmed Type Atorvastatin [Lipitor] 80 mg PO HS #30 tab 06/08/14 05/04/21 Rx Sertraline [Zoloft] 25 mg PO DAILY #30 tab 06/08/14 05/04/21 Rx Aspirin 81 mg PO DAILY chew 12/22/20 05/04/21 Rx Zolpidem [Ambien] 10 mg PO HS 05/04/21 05/04/21 History amLODIPine [Norvasc] 5 mg PO DAILY 05/04/21 05/04/21 History lisinopriL [Zestril] 20 mg PO BID 05/04/21 05/04/21 History Allergies Allergy/AdvReac Type Severity Reaction Status Date / Time No Known Allergies Allergy Verified 05/04/21 18:46 Physical Examination Osteopathic Statement: *. No significant issues noted on an osteopathic structural exam other than those noted in the History and Physical/Consult. - Wrist & Hand right Location of pain: dorsal wrist (There is obvious deformity of his distal radius and ulna. Capillary refill is less than 2 seconds. Compartments are soft.), other (His elbows nontender. His shoulder is nontender. His upper extremity on the left his bilateral lower extremity is of no pain with active or passive range of motion. His neck is nontender patient range motion. HEENT is normocephalic atraumatic. Chest has good excursion deep inspiration and expir) Wrist pain modifiers: other (There is gross deformity. There is a volar laceration approximately 4 cm proximal to the volar radial crease. It is oozing blood. There is a THROUGH type laceration ulnar today with oozing blood as well. Pulses are intact. Compartments are soft.) Results - Labs Labs: Abnormal Lab Results - Last 24 Hours (Table) 05/04/21 05/04/21 Range/Units 18:39 18:39 RBC 4.29 L (4.30-5.90) m/uL Hgb 11.7 L (13.0-17.5) gm/dL Hct 37.4 L (39.0-53.0) % Chloride 108 H (98-107) mmol/L Carbon Dioxide 20 L (22-30) mmol/L BUN 21 H (9-20) mg/dL Glucose 135 H (74-99) mg/dL H & H 05/04/21 Range/Units 18:39 Hgb 11.7 L (13.0-17.5) gm/dL Hct 37.4 L (39.0-53.0) % Coagulation 05/04/21 Range/Units 18:39 INR 0.9 (<1.2) Result Diagrams: 05/04/21 18:39 05/04/21 18:39 - Diagnostic results Wrist/Hand x-ray: report reviewed, image reviewed (At the right distal radius and ulna there is comminuted displaced fracture with 100% displacement and dorsal angulation the fracture is comminuted and transverse approximately 3 cm proximal to the disc radius articular surface) Assessment and Plan Assessment: Grade 1-2 open distal radius and ulna fracture, acute traumatic due to fall neurovascular intact Comminuted distal radius and ulna fracture extra articular at the distal shaft Plan: Grade 1-2 open distal radius and ulna fracture, acute traumatic due to fall neurovascular intact Comminuted distal radius and ulna fracture extra articular at the distal shaft The patient has a open fracture distal radius and ulna with neurologic status intact. There is comminution and displacement with angulation. There is minimal gross contamination but with the open nature of think that is necessary to perform urgent irrigation and debridement of the site. We will be able to evaluate the fracture pattern the comminution and consider internal fixation. I discussed this with him and his family at length. Judging by the comminution and potential bone loss at the area I think that my plans evening would most likely be to perform the emergent irrigation and debridement of the open fractur es and likely deferred the internal fixation to our hand specialist at a later date. We will consent as well for possible open reduction and internal fixation as well as the irrigation and debridement if fixation seems well feasible at this setting. I discussed this at length with the family and discussed the risk of occasions associated with his injury and the open fracture, as well as the proposed surgical irrigation and debridement with possible internal fixation at this date or potentially at later date. I discussed the risk of bleeding risk and infection risk and need for further surgery risk of decreased loss of motion loss of function as well as the risks of surgery involving anesthesia. They like to proceed with surgical intervention. We'll plan for right distal radius and ulna irrigation and debridement of open fracture with possible internal fixation.
--- NOTE | 2021-05-04 22:48 | P.OP ---
Date of Procedure: 05/04/21 Preoperative Diagnosis: Grade 1 open distal radius and ulna comminuted and displaced fracture, acute traumatic due to a fall with neurovascular status intact Postoperative Diagnosis: Same Anesthesia: MAC, regional Pathology: none sent Condition: stable Disposition: PACU Description of Procedure: Preoperative diagnosis: Grade 1 open distal radius and ulna comminuted and displaced fracture, acute traumatic due to a fall with neurovascular status intact Postoperative diagnosis: Same Procedure: Irrigation and excisional debridement of grade 1 open distal radius and ulna fracture, closed reduction of distal radius and ulna Surgeon: Dr. Dawson Lewis.: speech assistant Anesthesia: Regional block with sedation and Benjamin per Dr. Whitten Estimated blood loss: Approximately 40 mL Components implanted: None Disposition: To recovery room in good stable condition Operative indications The patient is an 85-year-old pkver-kahn-ibyqmoot male who sustained a injury with a fall today at home and suffered a comminuted and displaced open distal radius and ulna fracture. It appeared to be grade 1-2 with Poko through type lacerations over the fractures of the distal radius and ulna. He is neurologically intact. He did not sustain any other known injuries or loss consciousness. We discussed the range of treatment options from conservative to surgical. I discussed the need for emergent surgical irrigation and debridement with the open fracture to try to give the best chance of decreasing the opportunity for infectious process and to give the best opportunity for healing. I also discussed possibly of open reduction internal fixation and the atrophic injury and procedures themselves. We discussed the need for irrigation and debridement with possible open reduction and internal fixation as well as the possibility of open irrigation and debridement at this point with delayed internal fixation with hand specialist. I discussed these issues with the family and with the patient at length and answered their questions best my ability. They elected proceed with surgical intervention. They signed an informed consent. Operative summary After obtaining informed consent evaluation by anesthesia, preoperative evaluation and clearance for medical service, the patient was identified in the preoperative surgical area and the surgical site was marked. in the preoperative area they were received a regional block of his right upper extremity. There brought to the operating room where the given appropriate anesthesia by the anesthesia department in standard fashion without any complications. he was sedated with a Benjamin and closely monitored by anesthesia. Once the anesthesia was established we were able to position the patient. He is maintain a supine position onto his stretcher with his right arm extended over a hand table. A nonsterile tourniquet was placed over the right upper arm. Once patient was well positioned lower extremity was prepped and draped in normal standard sterile fashion. An appropriate keystone protocol and timeout was completed and were able to proceed with surgery. The tourniquet was elevated to 250 mmHg. It was utilized proximally 20 minutes. I was able to perform a gentle reduction technique at the distal radius and ulna. His gave improved length at the right forearm and wrist. I was able to explore the laceration sites at the volar distal forearm. It is approximately a 1.2 mm laceration over the the fracture of the distal radius approximately 4 cm proximal to the distal radial crease. There is approximately a 1-2 mm poke through incision ulnar to that at the level of the ulna fracture. I was able to explore into these areas may seem to continue to maintain with the fractures and cells. I extended the incisions sharply proximally and distally over both lacerations. I was able to explore the area cauterize any bleeders and remove any denuded tissue. With this accomplished I then performed a copious irrigation I with further debridement of any denuded tissue. His irrigated with approximately 2 L of saline through the wound sites. It had a good wound bed with no evidence of any purulence or further contamination. I was able to use a mini C-arm to evaluate the fractures. I was able to get good length at the fractures there is significant comminution at the fracture sites. There is significant instability even after the closed reduction. I was able to obtain good realignment in the anterior volar plane and adequate alignment at the radial and ulnar planes. With the amount of comminution and potential bone loss at the area I was unsure of the best fixation of the fracture sites and I felt the patient would be best served with deferring definitive internal fixation to her hand specialist. I then perform further irrigation and then primarily loosely closed the sharp incision sites with interrupted 4-0 nylon stitch. Wound was covered with Adaptic for a 4 and a bulky Salgado roll and placed in a sugar tong volar and dorsal splint above the elbow and to the metacarpal heads. He is placed in a sling drapes were broken down the tourniquet was released arabella roximately 20 minutes prior to closure and good hemostasis maintained. His compartments were soft. He was woken up by anesthesia and brought to recovery room in good stable condition. He will be admitted for pain control and antibiotic prophylaxis. I will discuss case further with her hand specialist for further definitive treatment. we will continue follow patient closely throughout their postoperative course.
[2021-05-04] MEDS ORDERED: VANCOMYCIN 1,250 MG in SODIUM CHLORIDE 0.9% 250 ML IVPB SCH (23:00)
[2021-05-04] MEDS ORDERED: SODIUM CHLORIDE 0.9% 1,000 ML IV SCH (23:00)
[2021-05-04] MEDS ORDERED: VANCOMYCIN IV PER PHARMACY 1 EACH MISC MISCELLANE PRN (23:03)
[2021-05-04] MEDS ORDERED: VANCOMYCIN 1,500 MG in SODIUM CHLORIDE 0.9% 250 ML IVPB ONE (23:15)
[2021-05-05] MEDS: HYDROcodone/APAP 5-325MG 1 EACH TAB PO PRN ×2 (06:06→09:46)
[2021-05-05 08:09] VITALS: BP 148/77; PULSE 72; RESP 16; TEMP 98.6
[2021-05-05] MEDS ORDERED: lisinopriL 20 MG TAB PO SCH (09:00)
[2021-05-05] MEDS ORDERED: SERTRALINE 25 MG TAB PO SCH (09:00)
[2021-05-05] MEDS ORDERED: amLODIPine 5 MG TAB PO SCH (09:00)
--- NOTE | 2021-05-05 09:04 | P.DS ---
Providers Date of admission: 05/04/21 18:32 Attending physician: Cesario Osman Consults: 05/04/21 22:50 Consult Physician Routine Consulting Provider: Dre Santana Consult Reason/Comments: Medical management Do you want consulting provider notified?: Yes Primary care physician: Jason Hua [facility] Course: The patient presented on the day of admission as per their operative note. He is 85-year-old male who sustained a fall at home while doing some leaf blowing. He had bleeding and obvious deformity at his right distal radius and ulna. He is zecyk-yzhm-wyiscoku. His found have a open distal radius and ulna fracture. He was admitted in this regard. He denies prior problems with his upper extremity. Denies any loss of consciousness denied any shortness breath or chest pain. He had significant pain and deformity of his right wrist. Physical Exam The incision site is clean dry and intact. There is no erythema no drainage. There is no purulence no evidence of infection. His compartments are soft throughout. Splint is intact. Abdomen soft and nontender. Chest has good excursion with deep inspiration and expiration. The patient has active and passive range of motion intact at the upper and lower extremities. There is no acute change in neurologic status. He does not have any pain with passive or active range of motion of his fingers. He has some swelling in his fingers of the right. Otherwise his neck and other extremities are pain-free with good mobility. Hospital Course Postoperative day #1 status post irrigation and debridement of grade 1 open distal radius and ulna shaft fracture Acute traumatic grade 1 open distal radius and ulna shaft fracture status post fall with neurovascular status intact The patient has been making good progress postoperatively. He remains comfortable. He has been receiving antibiotics yesterday and overnight without any evidence of active infection. His irrigation and debridement of the surgical site was completed yesterday and appears to be in an appropriate trajectory towards healing. The patient continues to make progress and I think that the area has been washed out appropriately. I think that he will require definitive fixation for his distal radius and ulna shaft fracture. I discussed the case with our upper extremity specialist and they are in agreement. I think that we can plan for the patient to be discharged home today with land for definitive fixation tomorrow in the operating room. He will continue prophylactic antibiotics. He can keep his splint intact. It is okay for him to take his regular medication and regular diet today to be nothing by mouth after midnight. He should hold his aspirin today. I discussed the situation with the patient and his at bedside at length. I discussed in a similar of the injury and my feeling that definitive treatment with an upper extremity specialist would be most appropriate for him. I discussed the case with her upper extremity specialist and they are in agreement as well. We will plan for surgical intervention tomorrow. The patient has progressed appropriately. I think they are in stable condition for discharge today with appropriate prophylactic antibiotics and a surgical plan for tomorrow. They will be sent home with appropriate prescriptions. I answered their questions to the best of my ability in a language that they can understand and they are agreeable with the plan. They will follow up as directed. Our office will be in contact with them today for appropriate further surgical planning. Patient Condition at Discharge: Good Plan - Discharge Summary Discharge Rx Participant: Yes New Discharge Prescriptions: New Cephalexin [Keflex] 500 mg PO Q6HR 1 Days #4 cap HYDROcodone/APAP 5-325MG [[place] 5] 1 each PO Q6HR PRN #12 tab PRN Reason: Pain No Action Atorvastatin [Lipitor] 80 mg PO HS #30 tab Sertraline [Zoloft] 25 mg PO DAILY #30 tab Zolpidem [Ambien] 10 mg PO HS lisinopriL [Zestril] 20 mg PO BID Aspirin 81 mg PO DAILY chew amLODIPine [Norvasc] 5 mg PO DAILY Discharge Medication List Atorvastatin [Lipitor] 80 mg PO HS #30 tab 06/08/14 [Rx] Sertraline [Zoloft] 25 mg PO DAILY #30 tab 06/08/14 [Rx] Aspirin 81 mg PO DAILY chew 12/22/20 [Rx] Zolpidem [Ambien] 10 mg PO HS 05/04/21 [History] amLODIPine [Norvasc] 5 mg PO DAILY 05/04/21 [History] lisinopriL [Zestril] 20 mg PO BID 05/04/21 [History] Cephalexin [Keflex] 500 mg PO Q6HR 1 Days #4 cap 05/05/21 [Rx] HYDROcodone/APAP 5-325MG [[place] 5] 1 each PO Q6HR PRN #12 tab 05/05/21 [Rx] Follow up Appointment(s)/Referral(s): Jason March MD [Primary Care Provider] - 1-2 days Activity/Diet/Wound Care/Special Instructions: Keep right upper extremity splint and dressing intact. Elevate right upper extremity. Right upper extremity sling for comfort Nothing to eat after midnight tonight for surgery Sunday. Discharge Disposition: HOME SELF-CARE
[2021-05-05] MEDS ORDERED: ATORVASTATIN 80 MG TAB PO SCH (21:00)
[2021-05-05] MEDS ORDERED: ZOLPIDEM 5 MG TAB PO SCH (21:00)
== END 2021-05-05 10:26 | disposition home or self-care (01) ==
LOC: EC 17:44 → 5NMEDONC 18:32
PROVIDERS: ADMIT Orthopaedic Surgery Orthopaedic Surgery of the Spine; ATTEND Orthopaedic Surgery Orthopaedic Surgery of the Spine
DX: S52.351B Displaced comminuted fracture of shaft of radius, right arm, initial encounter for open fracture type I or II (principal); S52.251B Displaced comminuted fracture of shaft of ulna, right arm, initial encounter for open fracture type I or II; I10 Essential (primary) hypertension; E78.5 Hyperlipidemia, unspecified; B02.9 Zoster without complications; F41.9 Anxiety disorder, unspecified; I48.91 Unspecified atrial fibrillation; Z20.822 Contact with and (suspected) exposure to COVID-19; W01.0XXA Fall on same level from slipping, tripping and stumbling without subsequent striking against object, initial encounter; Y92.009 Unspecified place in unspecified non-institutional (private) residence as the place of occurrence of the external cause; Z95.1 Presence of aortocoronary bypass graft; Z85.46 Personal history of malignant neoplasm of prostate; Z79.899 Other long term (current) drug therapy; Z79.82 Long term (current) use of aspirin
CPT/HCPCS: 25565; 11010; 90471; 96361; 96365; 96375; 99285; 93005; 64415; 76942; 80053; 85025; 85610; 85730; 87635; 73100; 71045; 90715; G0378 ×2; J3370; J0690; J2001; J3010; J2795; J2704; J1170

== ENCOUNTER 2022-05-11 04:40 | Emergency (ER) | payer MEDICARE ==
[2022-05-11] MEDS ORDERED: CYCLOBENZAPRINE 5 MG TAB PO STA (05:17)
[2022-05-11] MEDS ORDERED: MORPHINE SULFATE 4 MG/ML SYRINGE IM STA (05:17)
--- NOTE | 2022-05-11 07:13 | CT ---
EXAMINATION TYPE: CT cervical spine wo con CT DLP: 382.8 mGycm, Automated exposure control for dose reduction was used. DATE OF EXAM: 05/11/2022 6:12 AM COMPARISON: None. CLINICAL INDICATION:Male, 86 years old with history of neck pain; TECHNIQUE: Axial CT images from the skull base to the inferior aspect of T2 we obtained without intra venous contrast. Coronal and sagittal reformatted images were also reviewed. FINDINGS: Fracture: None. Osseous structures: Multilevel degenerative disc disease changes with endplate spurring and disc oste ophyte complex's. Vertebral alignment: Alignment within normal limits. Spinal canal/Neural Foramina: No evidence of significant spinal canal narrowing. No evidence for sign ificant neural foraminal stenosis. Neck soft tissues: Prevertebral soft tissues are within normal limits. Calcification of the nuchal li gament. Other: The airway is patent. The lung apices are clear. Atherosclerosis of the carotid bifurcations. Partially visualized sternotomy wires. Atherosclerosis of the internal cranial vasculature. IMPRESSION: 1. No evidence of cervical spine fracture. 2. Moderate multilevel degenerative disc disease.
[2022-05-11] MEDS ORDERED: KETOROLAC 15 MG/ML 1 ML VIAL IM STA (07:19)
--- NOTE | 2022-05-11 07:23 | ED ---
Neck Injury/Pain HPI - General Mode of arrival: wheelchair Limitations: no limitations <Fidelia Lopez - Last Filed: 05/11/22 07:14> <Jason Marcos - Last Filed: 05/11/22 09:55> - General Chief Complaint: Neck Pain/Injury Stated Complaint: stiff neck Time Seen by Provider: 05/11/22 04:58 - History of Present Illness Initial Comments: 86-year-old male with past history of coronary artery disease status post bypass, hypertension who presents to the emergency department with neck pain. Patient reports that overnight he developed onset of stiffness in neck graded 10 out of 10. States that the pressure is radiating up into his head. No visual changes. No trauma. Pain is reproducible upon movement of the neck to the left or right. No numbness or tingling radiating into the arms or legs. No loss of strength. He denies any fevers. No chest pain or shortness of breath. He did take a gabapentin at 2 AM without any improvement in his symptoms. (Fidelia Lopez) - Related Data Home Medications Medication Instructions Recorded Confirmed Zolpidem [Ambien] 10 mg PO HS 05/04/21 05/04/21 amLODIPine [Norvasc] 5 mg PO DAILY 05/04/21 05/04/21 lisinopriL [Zestril] 20 mg PO BID 05/04/21 05/04/21 Previous Rx's Medication Instructions Recorded Atorvastatin [Lipitor] 80 mg PO HS #30 tab 06/08/14 Sertraline [Zoloft] 25 mg PO DAILY #30 tab 06/08/14 Aspirin 81 mg PO DAILY chew 12/22/20 Cephalexin [Keflex] 500 mg PO Q6HR 1 Days #4 cap 05/05/21 HYDROcodone/APAP 5-325MG [[place] 5] 1 each PO Q6HR PRN #12 tab 05/05/21 Cyclobenzaprine [Flexeril] 5 mg PO Q8H PRN 7 Days #21 tablet 05/11/22 Lidocaine 5% Patch [Lidoderm 5% 1 patch TOPICAL DAILY PRN 7 Days 05/11/22 Patch] #7 patch Allergies Allergy/AdvReac Type Severity Reaction Status Date / Time No Known Allergies Allergy Verified 05/11/22 04:42 Review of Systems ROS Other: All systems not noted in ROS Statement are negative. <Fidelia Lopez - Last Filed: 05/11/22 07:14> ROS Other: All systems not noted in ROS Statement are negative. <Jason Marcos - Last Filed: 05/11/22 09:55> ROS Statement: Those systems with pertinent positive or pertinent negative responses have been documented in the HPI. Past Medical History Past Medical History: Cancer, Hyperlipidemia, Hypertension Additional Past Medical History / Comment(s): prostate CA, shingles History of Any Multi-Drug Resistant Organisms: None Reported Past Surgical History: Coronary Bypass/CABG, Hernia Repair, Prostate Surgery Additional Past Surgical History / Comment(s): ankle surgery Past Anesthesia/Blood Transfusion Reactions: No Reported Reaction Past Psychological History: Anxiety Smoking Status: Never smoker Past Alcohol Use History: Occasional Past Drug Use History: None Reported - Past Family History Daughter(s) Family Medical History: No Reported History <Fidelia Lopez - Last Filed: 05/11/22 07:14> General Exam Limitations: no limitations General appearance: alert, in no apparent distress Head exam: Present: atraumatic, normocephalic, normal inspection Eye exam: Present: normal appearance, PERRL, EOMI. Absent: scleral icterus, conjunctival injection, periorbital swelling ENT exam: Present: normal exam, mucous membranes moist Neck exam: Present: tenderness (paraspinal), other (Decreased range of motion to the left or right. Negative Kernig's or Brudzinski's). Absent: meningismus, lymphadenopathy Respiratory exam: Present: normal lung sounds bilaterally. Absent: respiratory distress, wheezes, rales, rhonchi, stridor Cardiovascular Exam: Present: regular rate, normal rhythm, normal heart sounds. Absent: systolic murmur, diastolic murmur, rubs, gallop, clicks GI/Abdominal exam: Present: soft, normal bowel sounds. Absent: distended, tenderness, guarding, rebound, rigid Extremities exam: Present: normal inspection, full ROM, normal capillary refill. Absent: tenderness, pedal edema, joint swelling, calf tenderness Back exam: Present: normal inspection Neurological exam: Present: alert, oriented X3, CN II-XII intact Psychiatric exam: Present: normal affect, normal mood Skin exam: Present: warm, dry, intact, normal color. Absent: rash <Fidelia Lopez - Last Filed: 05/11/22 07:14> Course Vital Signs 05/11/22 05/11/22 04:42 09:07 Temperature 98.4 F Pulse Rate 72 89 Respiratory 16 18 Rate Blood Pressure 188/80 103/67 O2 Sat by Pulse 96 93 L Oximetry Medical Decision Making <Fidelia Lopez - Last Filed: 05/11/22 07:14> <Jason Marcos - Last Filed: 05/11/22 09:55> - Medical Decision Making Upon arrival the patient was placed into room 18. There are history and physical exam was performed. Patient does have significant paraspinal tenderness to palpation. He is given 5 mg Flexeril and [address] is performed patient's neck. Moderate multilevel treatment disc disease with no evidence of acute process. Patient was evaluating continues to have pain. I additionally ordered Toradol and another 5 mg flexeril. Patient will be signed out to Dr. Marcos (Fidelia Lopez) I reevaluated the patient multiple times. Initially following Toradol which did improve the pain somewhat. Also administered Valium which improved the pain. Patient is feeling improved. Would like to go home. I believe this is reasonable. We discussed the causes core torticollis. He will be given pain medications for home. He was in agreement this plan. Strict return precautions were discussed. I will provide the patient with a prescription for Flexeril, lidocaine patches. I instructed the patient to follow up with their PCP in the next 1-3 days. I explained that the patient should return to the emergency department if they experience any worsening symptoms. Strict return precautions were discussed with the patient. The patient expressed understanding of these instructions. I answered all questions that the patient had. The patient was discharged home in good condition with their prescriptions and follow up information. (Jason Marcos) Disposition Is patient prescribed a controlled substance at d/c from ED?: No <Fidelia Lopez - Last Filed: 05/11/22 07:14> Is patient prescribed a controlled substance at d/c from ED?: No Time of Disposition: 09:40 <Jason Marcos - Last Filed: 05/11/22 09:55> Clinical Impression: Neck pain, Torticollis Disposition: HOME SELF-CARE Condition: Fair Prescriptions: Cyclobenzaprine [Flexeril] 5 mg PO Q8H PRN 7 Days #21 tablet PRN Reason: Pain Lidocaine 5% Patch [Lidoderm 5% Patch] 1 patch TOPICAL DAILY PRN 7 Days #7 patch PRN Reason: Pain Referrals: Jason March MD [Primary Care Provider] - 1-2 days
[2022-05-11] MEDS ORDERED: diazePAM 2 MG TAB PO STA (09:01)
[2022-05-11 09:08] VITALS: RESP 18
[2022-05-11] MEDS ORDERED: LIDOCAINE 5% PATCH TOPICAL STA (09:55)
[2022-05-11 10:18] VITALS: BP 110/70; PULSE 79; TEMP 98.6
== END 2022-05-11 10:18 | disposition home or self-care (01) ==
LOC: EC 04:40
DX: M43.6 Torticollis (principal); I10 Essential (primary) hypertension; E78.5 Hyperlipidemia, unspecified; F41.9 Anxiety disorder, unspecified; Z79.82 Long term (current) use of aspirin; Z79.899 Other long term (current) drug therapy
CPT/HCPCS: 72125; 99283; 96372 ×2; J2270; J1885

== ENCOUNTER 2022-05-31 10:33 | Emergency (ER) | payer MEDICARE ==
[2022-05-31] MEDS ORDERED: MORPHINE SULFATE 4 MG/ML SYRINGE IM STA (10:56)
--- NOTE | 2022-05-31 11:02 | ED ---
Fall HPI - General Chief Complaint: Fall Stated Complaint: fall 2wks ago, hip pain Time Seen by Provider: 05/31/22 10:38 Source: patient, family Mode of arrival: wheelchair - History of Present Illness Initial Comments: 86-year-old male presents to the emergency room, alert and oriented with complaints of left hip and left lower back pain after tripping and falling on the porch 2 weeks ago from standing. Patient states pain continues and called his primary care doctor who told him to come to the emergency room. He did not hit his head, did not lose consciousness, denies any other injury. Patient does have a history of a right hip fracture, chronic back pain, kidney disease, hypertension, coronary artery disease and anxiety MD Complaint: fall -: week(s) (2) Fall From: standing Fall Witnessed: no Place Fall Occurred: home Loss of Consciousness: none Prolonged Down Time?: no Symptoms Prior to Fall: none Location: other (left hip lower back) Quality: aching Context: tripped/slipped Associated Symptoms: denies - Related Data Home Medications Medication Instructions Recorded Confirmed lisinopriL [Zestril] 20 mg PO BID 05/04/21 05/31/22 Apixaban [Eliquis] 5 mg PO BID 05/31/22 05/31/22 Atorvastatin [Lipitor] 80 mg PO DAILY 05/31/22 05/31/22 HYDROcodone/APAP 5-325MG [[place] 5] 1 tab PO Q6HR PRN 05/31/22 05/31/22 Metoprolol Succinate [Metoprolol 25 mg PO DAILY 05/31/22 05/31/22 Succinate ER] amLODIPine [Norvasc] 2.5 mg PO DAILY 05/31/22 05/31/22 Previous Rx's Medication Instructions Recorded Sertraline [Zoloft] 25 mg PO DAILY #30 tab 06/08/14 Lidocaine 5% Patch [Lidoderm 5% 1 patch TOPICAL DAILY PRN 7 Days 05/11/22 Patch] #7 patch Lidocaine 5% Patch [Lidoderm] 1 patch TOPICAL DAILY 14 Days #14 05/31/22 patch Allergies Allergy/AdvReac Type Severity Reaction Status Date / Time No Known Allergies Allergy Verified 05/31/22 11:24 Review of Systems ROS Statement: Those systems with pertinent positive or pertinent negative responses have been documented in the HPI. ROS Other: All systems not noted in ROS Statement are negative. Past Medical History Past Medical History: Cancer, Hyperlipidemia, Hypertension Additional Past Medical History / Comment(s): prostate CA, shingles History of Any Multi-Drug Resistant Organisms: None Reported Past Surgical History: Coronary Bypass/CABG, Hernia Repair, Prostate Surgery Additional Past Surgical History / Comment(s): ankle surgery Past Anesthesia/Blood Transfusion Reactions: No Reported Reaction Past Psychological History: Anxiety Smoking Status: Never smoker Past Alcohol Use History: Occasional Past Drug Use History: None Reported - Past Family History Daughter(s) Family Medical History: No Reported History General Exam Limitations: no limitations General appearance: alert, in no apparent distress Head exam: Present: atraumatic Eye exam: Absent: scleral icterus, conjunctival injection, periorbital swelling Neck exam: Absent: tenderness, meningismus Respiratory exam: Absent: respiratory distress, accessory muscle use Cardiovascular Exam: Present: regular rate GI/Abdominal exam: Present: soft Extremities exam: Present: normal capillary refill. Absent: pedal edema Back exam: Present: normal inspection, tenderness (left lower posterior pelvis tenderness, no bruising or swelling). Absent: CVA tenderness (R), CVA tenderness (L), muscle spasm, paraspinal tenderness, vertebral tenderness, rash noted Neurological exam: Present: alert, oriented X3, other (Shuffling) Psychiatric exam: Present: normal affect, normal mood Skin exam: Present: warm, dry, normal color. Absent: cyanosis, diaphoretic Course Vital Signs 05/31/22 05/31/22 05/31/22 10:41 11:25 12:09 Temperature 97.7 F 98.5 F Pulse Rate 77 85 62 Respiratory 14 16 16 Rate Blood Pressure 143/85 129/88 145/89 O2 Sat by Pulse 97 93 L Oximetry 05/31/22 05/31/22 13:00 13:35 Temperature 98.6 F 98.6 F Pulse Rate 64 56 L Respiratory 16 16 Rate Blood Pressure 165/95 169/83 O2 Sat by Pulse 97 96 Oximetry Medical Decision Making - Medical Decision Making Patient was given morphine for pain with complete relief. CT of the left hip and pelvis interpreted by me shows no evidence of acute fracture. Radiologist interpretation shows no acute fracture. Left hip demonstrates mild osteoarthrosis change. Hardware intact right hip. Patient will be discharged home to follow up with his primary care doctor. He and family are agreeable to this plan of care. Case discussed with Dr Lopez Disposition Clinical Impression: Fall, Back pain Disposition: HOME SELF-CARE Condition: Good Instructions (If sedation given, give patient instructions): Fall Prevention for Older Adults (ED), Musculoskeletal Pain (ED), Back Pain (ED) Additional Instructions: You can use topical pain relievers like icy hot, BenGay or capsaicin creams. Tylenol and as needed. If no relief you can try Lidoderm patches as prescribed. Follow-up with your primary care doctor this week. Return to the emergency room with any new or concerning symptoms. Prescriptions: Lidocaine 5% Patch [Lidoderm] 1 patch TOPICAL DAILY 14 Days #14 patch Is patient prescribed a controlled substance at d/c from ED?: No Referrals: Jason March MD [Primary Care Provider] - 1-2 days Time of Disposition: 12:51
[2022-05-31 11:29] VITALS: RESP 16
--- NOTE | 2022-05-31 12:04 | CT ---
EXAMINATION TYPE: CT pelvis wo con CT DLP: 380.2 mGycm, Automated exposure control for dose reduction was used. DATE OF EXAM: 05/31/2022 11:51 AM COMPARISON: CT abdomen pelvis most recent from CLINICAL INDICATION:Male, 86 years old with history of fall; worsening left hip pain following fall 2 weeks ago TECHNIQUE: Axial CT of the pelvis. Sagittal and coronal reformats were created on a separate worksta tion. Contrast used: none, Oral contrast used: without Oral Contrast FINDINGS: BLADDER: Unremarkable REPRODUCTIVE: Unremarkable. ABDOMEN & PELVIS STOMACH AND BOWEL: No evidence of bowel obstruction. PERITONEUM: No evidence of pneumoperitoneum or free fluid. VASCULATURE: No evidence of aortic aneurysm. Atherosclerosis of the arterial vasculature. MUSCULOSKELETAL: No acute osseous abnormalities, right hip arthroplasty changes. Hardware appears int act. There is no evidence for acute fracture. Mild osteophyte formation of the left hip with some min eralization of the labrum noted. LYMPH NODES: No gross evidence for lymphadenopathy. SOFT TISSUE/ABDOMINAL WALL: Unremarkable IMPRESSION: No evidence for acute fracture. The left hip demonstrates mild osteoarthrosis changes. Consider MRI e valuation of the left hip.
--- NOTE | 2022-05-31 12:15 | CT ---
The EXAMINATION TYPE: CT hip LT wo con DATE OF EXAM: 05/31/2022 COMPARISON: Is none HISTORY: worsening left hip pain following fall [address] DLP: 486.4 mGycm Automated exposure control for dose reduction was used. Unenhanced CT of the left hip was performed w ith bone and soft tissue window settings submitted. Axial, coronal and sagittal views are reviewed. FINDINGS: I do not see evidence for displaced or impacted fracture. Mild degenerative joint space narrowing. No sizable joint effusion. No osseous mass. No soft tissue masses seen. Vascular calcifications. IMPRESSION: No evidence for a displaced or impacted fracture of the left hip
[2022-05-31] MEDS ORDERED: MORPHINE SULFATE 4 MG/ML SYRINGE IVP STA (12:21)
[2022-05-31 14:14] VITALS: TEMP 98.6
[2022-05-31 14:15] VITALS: BP 169/83; PULSE 56
== END 2022-05-31 13:35 | disposition home or self-care (01) ==
LOC: EC 10:33
DX: M54.50 Low back pain, unspecified (principal); E78.5 Hyperlipidemia, unspecified; I10 Essential (primary) hypertension; F41.9 Anxiety disorder, unspecified; Z79.01 Long term (current) use of anticoagulants; Z79.899 Other long term (current) drug therapy; W01.0XXA Fall on same level from slipping, tripping and stumbling without subsequent striking against object, initial encounter
CPT/HCPCS: 99284; 96374; 72192; 73700; J2270

== ENCOUNTER → 2023-05-25 | Day surgery (SDC) | payer MEDICARE ==
[~2023-05-25] MED LIST: MIDAZOLAM 2 MG/2 ML VIAL IVP ONE; SODIUM CHLORIDE 0.9% 500 ML 500 ML IV ONE; fentaNYL (PF) 50 MCG/ML 2 ML AMP IVP ONE; fentaNYL (PF) 50 MCG/ML 2 ML AMP ONE
[2023-05-25 07:11] VITALS: TEMP 97.5
[2023-05-25] MEDS: BENZOCAINE SPRAY 1 CAN MUCOUS MEM ONE ×2 (07:20→07:29)
--- NOTE | 2023-05-25 07:42 | P.PCN ---
Date of Procedure: 05/25/23 Operative Findings: TRANSESOPHAGEAL ECHOCARDIOGRAM CIVIL ENGINEERING DESIGN DRAFTSPERSON: CHARI ASH MD, RPVI INDICATION: Rule out infective endocarditis SEDATION: Conscious sedation COMPLICATION: None LEVEL OF SEDATION Moderate to sedation length of 12 minutes PROCEDURE DESCRIPTION: After obtaining an informed consent, the patient was brought to transesophageal echocardiogram room. Pulse oximetry and heart monitors were attached to the patient. The patient throat was sprayed using lidocaine. The patient was turned into left lateral position. After that a bite guard was placed. After an appropriate conscious sedation was initiated, the transesophageal echocardiogram was advanced through a bite guard into the mid esophagus. A 2-D echocardiogram images, color Doppler images, continuous wave images, pulse-wave images, of various cardiac structure were performed. After that the transesophageal echocardiogram probe was advanced into the stomach and fixed to obtain transgastric view was. The probe was brought into the mid esophagus. Inter-atrial septum was interrogated using 2D images, color Doppler images, and then contrast study. After that transesophageal echocardiogram was withdrawn out and upon withdrawing the descending thoracic aorta all the way up to the arch was evaluated. CONCLUSION: 1. Normal biventricular dimension and systolic function 2. Aortic sclerosis with no stenosis or insufficiency 3. Thickened mitral valve leaflets was mild to moderate MR 4. No evidence of infective endocarditis
[2023-05-25 08:23] VITALS: BP 161/77; PULSE 60; RESP 14
== END ==
LOC: CATHCVL 06:13
PROVIDERS: ATTEND Internal Medicine Interventional Cardiology
DX: I25.10 Atherosclerotic heart disease of native coronary artery without angina pectoris (principal); I48.0 Paroxysmal atrial fibrillation; I70.0 Atherosclerosis of aorta; I35.9 Nonrheumatic aortic valve disorder, unspecified; I38 Endocarditis, valve unspecified; I10 Essential (primary) hypertension; E78.5 Hyperlipidemia, unspecified; Z79.82 Long term (current) use of aspirin; Z79.899 Other long term (current) drug therapy
CPT/HCPCS: 93312; 93320; 93325; J2250; J3010

== ENCOUNTER 2024-10-25 16:11 | Emergency (ER) | payer MEDICARE ==
[2024-10-25 16:17] VITALS: TEMP 98.8
--- NOTE | 2024-10-25 16:44 | CT ---
EXAMINATION TYPE: CT brain cspine wo con DATE OF EXAM: 10/25/2024 4:32 PM COMPARISON: Previous CT study 05/11/2022 CLINICAL INDICATION: Male, 89 years old with history of head injury; [employer]. Fall on thinners. TECHNIQUE: Brain: Multiple axial CT images of the brain were obtained without IV contrast. Cspine: Axial CT images from the skull base to the inferior aspect of T2 we obtained without intraven ous contrast. Coronal and sagittal reformatted images were also reviewed. . CT DLP: 1353.6 mGycm, Automated exposure control for dose reduction was used. FINDINGS: Brain: Extra-axial spaces: No abnormal extra-axial fluid collections. Ventricular system: Dilatation in proportion to cerebral atrophy. Cerebral parenchyma: No acute intraparenchymal hemorrhage or mass effect. The stanford-white junction is well differentiated. Scattered hypoattenuating areas are seen within the white matter. Cerebellum: Unremarkable. Mass effect: No evidence of midline shift. Intracranial vasculature: unremarkable Soft tissues: Normal. Calvarium/osseous structures: No depressed skull fracture. Paranasal sinuses and mastoid air cells: Clear. Visualized orbits: The lenses are surgically removed from the globes. Cervical spine: Fracture: No acute fracture. Osseous structures demineralized. Chronic mild compression deformities o f the T1 and T2 vertebral bodies. Osseous structures: Unremarkable Vertebral alignment: Within normal limits. Spinal canal/Neural Foramina: Multilevel uncovertebral and facet hypertrophy in combination with post erior disc osteophyte complexes cause varying degrees of spinal canal and neural foraminal and spinal canal stenosis. Neck soft tissues: Prevertebral soft tissues are within normal limits. Other: The airway is patent. The lung apices are clear. IMPRESSION: 1. No acute intracranial process. 2. No evidence of cervical spine fracture. [facility], , 10/25/2024 4:42 PM
--- NOTE | 2024-10-25 16:44 | ED ---
General Adult HPI - General Chief complaint: Fall Stated complaint: fall Time Seen by Provider: 10/25/24 16:18 Source: patient Mode of arrival: wheelchair Limitations: no limitations - History of Present Illness Initial comments: Dictation was produced using [employer] dictation software. please excuse any grammatical, word or spelling errors. Chief Complaint: 89-year-old male with head injury History of Present Illness: 81-year-old male who was put on his trailer when he lost his balance. He fell backwards hit the back of his head. Denies any loss of conscious takes Eliquis for A-fib. Patient did suffer a abrasion to his right elbow The ROS documented in this emergency department record has been reviewed and confirmed by me. Those systems with pertinent positive or negative responses have been documented in the HPI. All other systems are other negative and/or noncontributory. - Related Data Home Medications Medication Instructions Recorded Confirmed lisinopriL [Zestril] 20 mg PO BID 05/04/21 05/25/23 Apixaban [Eliquis] 5 mg PO BID 05/31/22 05/25/23 Atorvastatin [Lipitor] 40 mg PO HS 05/31/22 05/25/23 HYDROcodone/APAP 5-325MG [[place] 1 tab PO Q6HR PRN 05/31/22 05/25/23 5-325] Metoprolol Succinate [Metoprolol 25 mg PO DAILY 05/31/22 05/25/23 Succinate ER] amLODIPine [Norvasc] 2.5 mg PO DAILY 05/31/22 05/25/23 Acetaminophen Tab [Tylenol] 325 mg PO DIRECTED PRN 05/22/23 05/22/23 Terbinafine [LamISIL] 250 mg PO DAILY 05/22/23 05/22/23 Unk Vitafusion Multi Vitamin 1 tab PO DAILY 05/22/23 05/25/23 Zolpidem [Ambien] 10 mg PO HS PRN 05/22/23 05/25/23 predniSONE 10 mg PO DAILY 05/22/23 05/25/23 Previous Rx's Medication Instructions Recorded Sertraline [Zoloft] 25 mg PO DAILY #30 tab 06/08/14 Allergies Allergy/AdvReac Type Severity Reaction Status Date / Time No Known Allergies Allergy Verified 10/25/24 16:17 Review of Systems ROS Statement: Those systems with pertinent positive or pertinent negative responses have been documented in the HPI. ROS Other: All systems not noted in ROS Statement are negative. Past Medical History Past Medical History: Cancer, Hyperlipidemia, Hypertension Additional Past Medical History / Comment(s): prostate CA, shingles History of Any Multi-Drug Resistant Organisms: None Reported Past Surgical History: Coronary Bypass/CABG, Hernia Repair, Prostate Surgery Additional Past Surgical History / Comment(s): ankle surgery Past Anesthesia/Blood Transfusion Reactions: No Reported Reaction Past Psychological History: Anxiety Smoking Status: Never smoker - Past Family History Daughter(s) Family Medical History: No Reported History Father Family Medical History: Myocardial Infarction ([place]) Mother Family Medical History: CVA/TIA, Myocardial Infarction ([place]) General Exam - General Exam Comments Initial Comments: PHYSICAL EXAM: General Impression: Alert and oriented x3, not in acute distress HEENT: Normocephalic atraumatic, extra-ocular movements intact, pupils equal and reactive to light bilaterally, mucous membranes moist. Cardiovascular: Heart regular rate and rhythm Chest: Able to complete full sentences, no retractions, no tachypnea Abdomen: abdomen soft, non-tender, non-distended, no organomegaly Musculoskeletal: Pulses present and equal in all extremities, no peripheral edema Motor: no focal deficits noted Neurological: CN II-XII grossly intact, no focal motor or sensory deficits noted Skin: Abrasion to the right elbow Psych: Normal affect and mood Limitations: no limitations Course Vital Signs 10/25/24 16:13 Temperature 98.8 F Pulse Rate 73 Respiratory 18 Rate Blood Pressure 177/90 O2 Sat by Pulse 94 L Oximetry EKG Findings - EKG Comments: EKG Findings:: My EKG interpretation: Ventricular rate 67, A-fib, QRS 155, QTc 455. No NV prolongation, no QTC prolongation, no ST or T-wave changes noted.Overall, this EKG is unremarkable Medical Decision Making - Medical Decision Making Was pt. sent in by a medical professional or institution (, PA, FIRE CONTROL TECHNICIAN B, urgent care, hospital, or detention...) When possible be specific @ -No Did you speak to anyone other than the patient for history (EMS, parent, family, police, friend...)? What history was obtained from this source @ -No Did you review nursing and triage notes (agree or disagree)? Why? @ -I reviewed and agree with nursing and triage notes Were old charts reviewed (outside hosp., previous admission, EMS record, old EKG, old radiological studies, urgent care reports/EKG's, detention records)? Report findings @ -No old charts were reviewed Differential Diagnosis (chest pain, altered mental status, abdominal pain women, abdominal pain men, vaginal bleeding, musculoskeletal, weakness, fever, dyspnea, syncope, headache, dizziness, GI bleed, back pain, seizure, CVA, palpatations, mental health)? @ -Not applicable EKG interpreted by me (3pts min.). @ -See above X-rays interpreted by me (1pt min.). @ -None done CT interpreted by me (1pt min.). @ -Brain C-spine shows no acute processes U/S interpreted by me (1pt. min.). @ -None done What testing was considered but not performed or refused? (CT, X-rays, U/S, labs)? Why? @ -None What meds were considered but not given or refused? Why? @ -None Was smoking cessation discussed for >3mins.? @ -No Were there social determinants of health that impacted care today? How? (Homelessness, low income, unemployed, alcoholism, drug addiction, transportation, low edu. Level, literacy, decrease access to med. care, long term, rehab)? @ -No Was there de-escalation of care discussed even if they declined (Discuss DNR or withdrawal of care, Hospice)? DNR status @ -No What co-morbidities impacted this encounter? (DM, HTN, Smoking, COPD, CAD, Cancer, CVA, ARF, Chemo, Hep., AIDS, mental health diagnosis, sleep apnea, morbid obesity)? @ -None Was patient admitted / discharged? Hospital course, mention meds given and route, prescriptions, significant lab abnormalities, going to OR and other pertinent info. @ -89-year-old male presents with mechanical fall. Vital signs stable. Patient has abrasion to the right elbow. Vaseline gauze dressing was placed. Imaging studies are negative. Patient well-appearing. Patient no acute distress with discharge follow-up with primary care doctor. Did you discuss the management of the patient with other professionals (professionals i.e. , PA, FIRE CONTROL TECHNICIAN B, lab, RT, psych nurse, adoption social worker, community nutrition educator, teacher, loans officer, shelter case manager)? Give summary @ -No Was critical care preformed (if so, how long)? @ -No Undiagnosed new problem with uncertain prognosis? @ -No Drug Therapy requiring intensive monitoring for toxicity (Heparin, Nitro, Insulin, Cardizem)? @ -No Were any procedures done? @ -No Diagnosis/symptom? Acute, or Chronic, or Acute on Chronic? Uncomplicated (without systemic symptoms) or Complicated (systemic symptoms)? @ -Contusion Side effects of treatment? @ -No Exacerbation, Progression, or Severe Exacerbation? @ -No Poses a threat to life or bodily function? How? (Chest pain, [place], [place], pneumonia, PE, COPD, DKA, ARF, appy, cholecystitis, CVA, Diverticulitis, Homicidal, Suicidal, threat to staff... and all critical care pts) @ -No Disposition Clinical Impression: Head contusion Disposition: HOME SELF-CARE Condition: Good Instructions (If sedation given, give patient instructions): Fall Prevention for Older Adults (ED) Is patient prescribed a controlled substance at d/c from ED?: No Referrals: None,Stated [Primary Care Provider] - 1-2 days Time of Disposition: 16:59
--- NOTE | 2024-10-25 17:27 | XR ---
EXAMINATION TYPE: XR chest 2V DATE OF EXAM: 10/25/2024 5:19 PM COMPARISON: Multiple prior chest radiographs, most recently dated 05/04/2021. CLINICAL INDICATION: Male, 89 years old with history of pain after fall; [facility] TECHNIQUE: XR chest 2V Frontal and lateral views of the chest. FINDINGS: Cardiomegaly median sternotomy wires. Indeterminate regions of nodularity and calcifications in the bilateral lungs, slightly more pronounc ed compared to prior study. No sizable pleural effusion. No definite pneumothorax. No acute osseous abnormality. IMPRESSION: Indeterminate regions of nodularity and calcifications in the bilateral lungs. Recommend outpatient C T chest with IV contrast for further evaluation. [facility], , 10/25/2024 5:24 PM
--- NOTE | 2024-10-25 17:28 | XR ---
EXAMINATION TYPE: XR pelvis AP view DATE OF EXAM: 10/25/2024 5:19 PM COMPARISON: Prior radiograph 12/18/2020. CLINICAL INDICATION: Male, 89 years old with history of pain after fall; [facility], pain TECHNIQUE: XR pelvis AP view, examined in a single projection. FINDINGS: No acute fracture or dislocation. Degenerative fixation of the proximal right femur without periprostatic loosening or acute fracture. Osseous structures demineralized. Numerous surgical clips overlying the pelvis. Vascular calcifications noted. IMPRESSION: No acute osseous pathology. [facility], , 10/25/2024 5:25 PM
[2024-10-25] MEDS: DIPH,PERTUS(ACELL)TETVAC-LF 0.5 ML VIAL IM ONE (17:34)
[2024-10-25 17:50] VITALS: BP 157/85; PULSE 63; RESP 16
== END 2024-10-25 17:50 | disposition home or self-care (01) ==
LOC: EC 16:11
DX: S00.93XA Contusion of unspecified part of head, initial encounter (principal); S50.311A Abrasion of right elbow, initial encounter; R07.89 Other chest pain; R10.31 Right lower quadrant pain; I48.91 Unspecified atrial fibrillation; Z79.01 Long term (current) use of anticoagulants; Z23 Encounter for immunization; W19.XXXA Unspecified fall, initial encounter; Y92.009 Unspecified place in unspecified non-institutional (private) residence as the place of occurrence of the external cause
CPT/HCPCS: 70450; 71046; 72125; 72170; 90471; 90715; 93005; 99284